=== PATIENT | male | born 1950 | race Caucasian/White ===

== ENCOUNTER 2020-06-05 17:02 | Inpatient (IN) | payer MEDICARE, OTHER ==
[~2020-06-05] VITALS: Ht 177.8 cm; Wt 84.1 kg
[~2020-06-05 17:02] MED LIST: ASPI325 PO; ASPI81CH PO; ATEN25 PO; ATOR40TA PO; CLOP75 PO; CYCL10 PO; HYDR1TAB94 PO; LISI20 PO; LORA1 PO; LOSA25 PO; METO25ER PO; NITR.6SL SL; NITRSPRAY SL; PRAZ1 PO; SIMV80 PO
[2020-06-05 17:26] LABS: BASOPHILS ABSOLUTE AUTO 0.09 K/mm3 (0.00-0.23); BASOPHILS PERCENT AUTO 1 % (0-2); EOSINOPHILS ABSOLUTE AUTO 0.25 K/mm3 (0.00-0.68); EOSINOPHILS PERCENT AUTO 2 % (0-6); Hematocrit 48.3 % (37.0-53.0); Hemoglobin 14.9 g/dL (13.5-17.5); IMMATURE GRAN PERCENT AUTO 1 % (0-1); LYMPHOCYTES ABSOLUTE AUTO 6.65 K/mm3 (0.84-5.20); LYMPHOCYTES PERCENT AUTO 43 % (21-46); MONOCYTES ABSOLUTE AUTO 1.09 K/mm3 (0.16-1.47); MONOCYTES PERCENT AUTO 7 % (4-13); Mean Corpuscular HGB 30.8 pg (26.0-34.0); Mean Corpuscular HGB Conc 30.8 g/dL (31.5-36.5); Mean Corpuscular Volume 100 fL (80-100); Mean Platelet Volume 10.1 fL (9.1-12.4); NEUTROPHILS ABSOLUTE AUTO 7.17 K/mm3 (1.96-9.15); NEUTROPHILS PERCENT AUTO 46 % (41-73); Platelet Count 244 K/mm3 (150-400); RDW Standard Deviation 48.2 fL (35.1-46.3); Red Blood Cell Count 4.83 M/mm3 (4.30-5.90); White Blood Cell Count 15.45 K/mm3 (4.00-11.30)
[2020-06-05] MEDS ORDERED: METO25ER PO (17:32)
[2020-06-05] MEDS ORDERED: Simvastatin80 MG PO (17:37)
[2020-06-05 17:43] LABS: Ethanol (Alcohol), Blood, Med 19 mg/dL
[2020-06-05 17:44] LABS: International Normalized Ratio 1.03
[2020-06-05 17:49] LABS: Alanine Aminotransfer (ALT/SGP 26 U/L (12-78); Albumin, Blood 3.5 g/dL (3.4-5.0); Alk Phos 58 U/L (50-136); Anion Gap 26 mmol/L (6-16); Aspartate Aminotrans (AST/SGOT 36 U/L (12-37); Bilirubin, Total 0.4 mg/dL (0.1-1.0); Blood Urea Nitrogen 19 mg/dL (8-24); Bun/Creatinine Ratio 15.2 (12.0-20.0); CO2, Blood 8 mmol/L (21-32); Calcium, Blood 9.4 mg/dL (8.5-10.1); Chloride, Blood 105 mmol/L (98-108); Creatinine, Blood 1.25 mg/dL (0.60-1.20); Globulin, Blood 3.6 g/dL (2.2-4.0); Glomerular Filtration Rate >60 (60-); Glucose, Blood 176 mg/dL (70-99); Potassium, Blood 4.6 mmol/L (3.5-5.5); Sodium, Blood 139 mmol/L (136-145); Total Protein, Blood 7.1 g/dL (6.4-8.2)
[2020-06-05 19:43] LABS: U Amphetamine Screen DETECTED; U Barbituate Screen Not Detected; U Benzodiazapine Screen Not Detected; U Buprenorphine Screen Not Detected; U Cannabinoids Screen Not Detected; U Cocaine Screen Not Detected; U Methadone Screen Not Detected; U Methamphetamine Screen Not Detected; U Opiates Screen Not Detected; U Oxycodone Screen Not Detected; U Phencyclidine Screen Not Detected; U Propoxyphene Screen Not Detected
--- NOTE | 2020-06-05 20:10 | NUR ---
ADMIT RECEIVED FROM ER VIA GURNEY. INTUBATED- AC 14, TV 450, PEEP 5, FIO2 50%. ETT 8.0, 25CM AT LIP. SEDATED WITH PROPOFOL @ 40MCG/KG/MIN. PT MOVING ALL EXTREMITIES. BILATERAL SOFT WRIST RESTRAINTS IN PLACE TO PREVENT SELF-EXTUBATION. NOT FOLLOWING ANY COMMANDS. MULTIPLE LACERATIONS NOTED TO FACE, HEAD, SCALP, ABDOMEN, LEFT FOREARM, AND RIGHT HAND. RIGHT SCALP LACERATION CONTINUES TO BLEED. MONITOR SHOWS NSR, RATE 90s. BP STABLE. NG TO RIGHT NARES- CLAMPED. GOMEZ PATENT AND DRAINING SLIGHTLY HAZY YELLOW URINE. SEE ADMIT ASSESSMENT FOR FULL ASSESSMENT.
--- NOTE | 2020-06-05 20:15 | NUR ---
AGITATION PT SITTING UP IN BED AND THROWING SELF OVER TO THE SIDE OF THE BED. DOES NOT CALM TO COMMAND/INSTRUCTION. PROPOFOL INCREASED TO 80MCG/KG/MIN AT THIS TIME.
[2020-06-05] MEDS ORDERED: BUPROPION XL150 M1 PO (22:01)
[2020-06-05] MEDS ORDERED: LOSA50 PO (22:02)
[2020-06-05] MEDS ORDERED: ESCI5 PO (22:02)
[2020-06-05] MEDS ORDERED: QUET100 PO (22:03)
[2020-06-05] MEDS ORDERED: METF500 PO (22:03)
[2020-06-05] MEDS ORDERED: Ventolin/Prove6.7 GM INH (22:04)
[2020-06-05] MEDS ORDERED: TIOT18 INH (22:05)
--- NOTE | 2020-06-05 23:30 | NUR ---
SEDATION PRECEDEX STARTED AT THIS TIME AT 0.2MCG/KG/HR. PROPOFOL DECREASED T0 50MCG/KG/MIN.
[2020-06-05 23:46] LABS: PCO2 Arterial 53.3 mmHg (35-45); PO2 Arterial 124 mmHg (80-100); pH Blood Arterial 7.28 (7.35-7.45)
[2020-06-06 01:00] LABS: BASOPHILS ABSOLUTE AUTO 0.04 K/mm3 (0.00-0.23); BASOPHILS PERCENT AUTO 0 % (0-2); EOSINOPHILS ABSOLUTE AUTO 0.06 K/mm3 (0.00-0.68); EOSINOPHILS PERCENT AUTO 1 % (0-6); Hematocrit 42.5 % (37.0-53.0); Hemoglobin 13.5 g/dL (13.5-17.5); IMMATURE GRAN ABSOLUTE AUTO 0.04 K/mm3 (0.00-0.10); IMMATURE GRAN PERCENT AUTO 0 % (0-1); LYMPHOCYTES ABSOLUTE AUTO 1.72 K/mm3 (0.84-5.20); LYMPHOCYTES PERCENT AUTO 17 % (21-46); MONOCYTES ABSOLUTE AUTO 1.14 K/mm3 (0.16-1.47); MONOCYTES PERCENT AUTO 11 % (4-13); Mean Corpuscular HGB 30.6 pg (26.0-34.0); Mean Corpuscular HGB Conc 31.8 g/dL (31.5-36.5); Mean Corpuscular Volume 96 fL (80-100); Mean Platelet Volume 9.7 fL (9.1-12.4); NEUTROPHILS ABSOLUTE AUTO 7.28 K/mm3 (1.96-9.15); NEUTROPHILS PERCENT AUTO 71 % (41-73); Platelet Count 186 K/mm3 (150-400); RDW Coefficient Variation 13.2 % (11.7-14.2); RDW Standard Deviation 47.6 fL (35.1-46.3); Red Blood Cell Count 4.41 M/mm3 (4.30-5.90); White Blood Cell Count 10.28 K/mm3 (4.00-11.30)
[2020-06-06 01:19] LABS: Anion Gap 4 mmol/L (6-16); Blood Urea Nitrogen 19 mg/dL (8-24); Bun/Creatinine Ratio 16.5 (12.0-20.0); CO2, Blood 28 mmol/L (21-32); Chloride, Blood 109 mmol/L (98-108); Creatinine, Blood 1.15 mg/dL (0.60-1.20); Glomerular Filtration Rate >60 (60-); Glucose, Blood 197 mg/dL (70-99); Potassium, Blood 4.3 mmol/L (3.5-5.5); Sodium, Blood 141 mmol/L (136-145)
[2020-06-06 01:20] LABS: CPK Creatine Kinase 1016 U/L (39-308)
--- NOTE | 2020-06-06 04:30 | NUR ---
NG PLACEMENT ATTEMPTED TO CONFIRM NG PLACEMENT, BUT NG NOTED TO BE CURLED UP INSIDE RIGHT NARES. NG TUBE PULLED OUT AT THIS TIME AND OG PLACED WITHOUT DIFFICULTY. PLACEMENT CONFIRMED BY BOTH AUSCULTATION AND ASPIRATION OF GASTRIC CONTENTS.
--- NOTE | 2020-06-06 05:59 | NUR ---
SHIFT SUMMARY NO ACUTE CHANGES. REMAINS INTUBATED- AC 16, TV 450, PEEP 5, FIO2 35%. SEDATED WITH PROPOFOL BETWEEN 25-80MCG/KG/MIN DURING NOC- NOW INFUSING @ 25MCG/KG/MIN. PRECEDEX INFUSING AT 0.2MCG/KG/HR. PT MOVES ALL EXTREMITIES IN RESPONSE TO NOXIOUS STIMULI. UNABLE TO OPEN EYES D/T SWELLING. BILATERAL SOFT WRIST RESTRAINTS IN PLACE. SLIGHT GAG REFLEX NOTED WITH ORAL CARE. VSS T/O NOC. AFEBRILE. OG IN PLACE. GOMEZ PATENT AND DRAINING YELLOW URINE. MULTIPLE LACERATIONS NOTED- PICTURES IN CHART. NS + 20mEq KCL INFUSING AT 100CC/HR PER ORDER. BANANA BAG GIVEN PER ORDER. MEDICATED WITH MS 10MG IV X 1 DOSE DURING SHIFT. SCDs TO BLE. WILL REPORT TO ONCOMING RN WHEN AVAILABLE.
--- NOTE | 2020-06-06 09:40 | NUR ---
AM NOTE... ASSUMED CARE OF PT APROX 0700, PT IS INTUBATED AND SEDATED, CURRENT VENT SETTINGS ARE AC: 16,450,5 AND30% TURNED DOWN FROM 35% AT THE START OF THIS SHIFT. PT STARTED THIS SHIFT ON PROPOFOL AT 25 AND PRECEDEX AT 0.2. DURING ASSESSMENT THE PT CAME FORWARD OFF OF THE BED TRYING TO SELF EXTUBATE, KICKING HIS LEGS AND KNEES UP ATTEMPTING TO GET UP. PROPOFOL WAS INCREASED TO 40MCG/KG/MIN THEN 60MCG/KG/MIN AND PRECEDEX WAS INCREASED TO 0.4 MCG/KG/MIN, PT WAS ALSO GIVEN 50MCG OF FENTANYL AT THIS TIME. ONCE THE PT WAS COMFORTABLE AND CALM AGAIN THE PROPOFOL WAS TITRATED BACK DOWN TO 30MCG/KG/MIN. L/S INSP WHEEZES HEARD IN THE UPPER LOBES. BT PRESENT AND HYPOACTIVE ABD HAS MINIMAL DISTENTION AND IS SOFT TO PALP. NO EDEMA NOTED ON ASSESSMENT. PT HAS MULTIPLE LACERATIONS TO HIS HEAD/FACE AND ABD, PICTURES IN THE CHART. DR. EASTMAN AT THE BEDSIDE OF ASSESSMENT, PER IT IS OKAY TO INCREASE THE PRECEDEX TO 1.4MCG/KG/HR IF NEEDED TO DECREASE PROPOFOL USE. WILL CONTINUE TO MONITOR.
--- NOTE | 2020-06-06 12:25 | NUR ---
PT UPDATE... PT'S BP IS CURRENTLY MAINTAINING 70'S/50'S WITH MAPS HIGH 50'S-LOW 60'S, DR. EASTMAN NOTIFIED, 1000MLS BOLUS OF NS WAS ORDERED AND STARTED. TRICKLE TUBE FEED AT 15MLS/HR WAS STARTED WELL. WILL CONTINUE TO MONITOR.
[2020-06-06 14:41] LABS: Hematocrit 35.5 % (37.0-53.0); Hemoglobin 11.4 g/dL (13.5-17.5)
--- NOTE | 2020-06-06 17:25 | NUR ---
SHIFT SUMMARY... PT REMAINS INTUBATED AND SEDATED, A CENTRAL LINE WAS PLACED IN THE PT'S LEFT GROIN BY DR. EASTMAN AND LEVOPHED WAS STARTED DUE TO THE PT'S MAP BEING BELOW 60. THE PT'S SEDATION WAS CHANGED FROM PRECEDEX GTT TO A VERSED GTT, THE PROPOFOL IS RUNNING AT 30, PT RESPONDS TO NOXIOUS STIMULI AND REPOSITIONING. PT AT TIMES WILL KICK UP HIS KNEES TOWARDS STAFF AND ATTEMPT TO KICK THEM WITH HIS FEET WHEN STAFF IS PROVIDING CARE. PT'S VENT SETTINGS REMAIN THE SAME AC: 16,450,5 AND 30% WITH O2 SATS >90%. PT'S TMAX FOR THE DAY WAS 99.3. GOMEZ IS PATENT AND DRAINING CLEAR YELLOW URINE TO GRAVITY. THE DRESSINGS WERE CHANGED TO THE PT'S HEAD AND RIGHT EYE, THERE IS AN AREA TO THE PT'S EYE LID THAT APPEARES TO HAVE BEEN SPLIT/CUT AND THERE IS SMALL AMOUNT OF POSSIBLE FATTY ORBITAL TISSUE EXPOSED IN THAT AREA, DR. EASTMAN MADE AWARE AND HE ASSESSED THE AREA, NO NEW ORDERS GIVEN AT THIS TIME. TRICKLE TUBE FEED STARTED PER ORDERS AT 15MLS/HR PT SEEMS TO BE TOLERATING THIS WELL. WILL CONTINUE TO MONITOR UNTIL REPORT IS GIVEN TO ONCOMING RN.
--- NOTE | 2020-06-06 19:00 | NUR ---
ASSUMED CARE ASSUMED CARE OF PATIENT. REMAINS INTUBATED- AC 16, TV 450, PEEP 5, FIO2 30%. SEDATED WITH PROPOFOL @ 30MCG/KG/MIN AND VERSED AT 2MG/HR. OCCASIONAL PERIODS OF AGITATION WITH STIMULI, OTHERWISE PT IS CALM. MOVES ALL EXTREMITIES. NOT FOLLOWING ANY COMMANDS. BILATERAL SOFT WRIST RESTRAINTS IN PLACE TO PREVENT SELF-EXTUBATION. MONITOR SHOWS SB-SR, RATE 58-60s. SBP 90s, MAP >65. AFEBRILE. OG WITH PIVOT 1.5 INFUSING @ 15CC/HR PER ORDER. GOMEZ PATENT AND DRAINING YELLOW URINE. SCDs TO BLE. SCATTERED LACERATIONS NOTED. SEE SHIFT ASSESSMENT FOR FULL ASSESSMENT.
[2020-06-07 04:28] LABS: BASOPHILS ABSOLUTE AUTO 0.03 K/mm3 (0.00-0.23); BASOPHILS PERCENT AUTO 0 % (0-2); EOSINOPHILS ABSOLUTE AUTO 0.13 K/mm3 (0.00-0.68); EOSINOPHILS PERCENT AUTO 2 % (0-6); Hematocrit 34.7 % (37.0-53.0); IMMATURE GRAN ABSOLUTE AUTO 0.02 K/mm3 (0.00-0.10); IMMATURE GRAN PERCENT AUTO 0 % (0-1); LYMPHOCYTES ABSOLUTE AUTO 2.07 K/mm3 (0.84-5.20); LYMPHOCYTES PERCENT AUTO 24 % (21-46); MONOCYTES ABSOLUTE AUTO 0.99 K/mm3 (0.16-1.47); MONOCYTES PERCENT AUTO 12 % (4-13); Mean Corpuscular HGB 31.3 pg (26.0-34.0); Mean Corpuscular HGB Conc 31.7 g/dL (31.5-36.5); Mean Corpuscular Volume 99 fL (80-100); Mean Platelet Volume 9.9 fL (9.1-12.4); NEUTROPHILS ABSOLUTE AUTO 5.34 K/mm3 (1.96-9.15); NEUTROPHILS PERCENT AUTO 62 % (41-73); Platelet Count 140 K/mm3 (150-400); RDW Coefficient Variation 13.9 % (11.7-14.2); RDW Standard Deviation 49.7 fL (35.1-46.3); Red Blood Cell Count 3.52 M/mm3 (4.30-5.90); White Blood Cell Count 8.58 K/mm3 (4.00-11.30)
--- NOTE | 2020-06-07 04:42 | NUR ---
SEDATION/SBT SEDATION TITRATED DOWN AFTER AM CHEST XRAY DONE. PT WAS MILDLY AGITATED WITH REPOSITIONING FOR XRAY.
[2020-06-07 04:52] LABS: Albumin, Blood 3.3 g/dL (3.4-5.0); Anion Gap 3 mmol/L (6-16); Blood Urea Nitrogen 14 mg/dL (8-24); Bun/Creatinine Ratio 14.3 (12.0-20.0); CO2, Blood 24 mmol/L (21-32); Calcium, Blood 8.1 mg/dL (8.5-10.1); Chloride, Blood 119 mmol/L (98-108); Creatinine, Blood 0.98 mg/dL (0.60-1.20); Glomerular Filtration Rate >60 (60-); Glucose, Blood 122 mg/dL (70-99); Magnesium, Blood 2.7 mg/dL (1.6-2.4); Phosphorus, Blood 2.5 mg/dL (2.5-4.9); Potassium, Blood 4.2 mmol/L (3.5-5.5); Sodium, Blood 146 mmol/L (136-145)
--- NOTE | 2020-06-07 05:46 | NUR ---
SEDATION/SBT PT WEANED WITH PROPOFOL @ 10MCG/MIN AND VERSED GTT AT 1MG/HR. PASSIVE WEAN DONE IN ATTEMPT TO NOT AGITATE PATIENT DURING WEAN. PT MOVING ALL EXTREMITIES. NOT FOLLOWING ANY COMMANDS. BECOMES INCREASINGLY AGITATED SO PROPOFOL INCREASED TO 20MCG/KG/MIN AT THIS TIME. SEE RT DOCUMENTATION.
--- NOTE | 2020-06-07 06:37 | NUR ---
SHIFT SUMMARY NO ACUTE CHANGES DURING NOC. REMAINS INTUBATED- AC 16, TV 450, PEEP 5, FIO2 30%. SEDATED WITH PROPOFOL BETWEEN 10-20MCG/KG/MIN- NOW INFUSING AT 20MCG/KG/MIN. SEDATED ALSO WITH VERSED GTT BETWEEN 1-2MG/HR- NOW INFUSING AT 1MG/HR. MOVES ALL EXTREMITIES. NOT FOLLOWING COMMANDS. OCCASIONAL PERIODS OF AGITATION WHERE PT KICKS LEGS AND ATTEMPTS TO SIT UP. MEDICATED WITH FENTANYL 50MCG IV X 2 DOSES FOR PAIN AND AN ADJUNCT TO SEDATION. VSS. BECOMES SLIGHTLY HYPERTENSIVE WITH AGITATION. OG WITH PIVOT 1.5 AT 15CC/HR PER ORDER. RESIDUALS <10CC. GOMEZ PATENT AND DRAINING. TMAX 99.8F. MULTIPLE CALLS RECEIVED FROM VARIOUS FAMILY MEMBERS DURING NOC. WILL REPORT TO ONCOMING RN WHEN AVAILABLE.
--- NOTE | 2020-06-07 09:43 | NUR ---
AM NOTE... ASSUMED CARE OF PT APROX 0700, PT IS INTUBATED AND SEDATED VENT SETTINGS AC: 16/450/5/30% WITH O2 SATS >92%. L/S COARSE IN THE UPPER LOBES CLEAR/DIM IN THE LOWER LOBES. BT PRESENT AND HYPOACTIVE, ABD IS SOFT AND TENDER TO PALP D/T LACERATIONS. PT HAS NOT HAD A BM SINCE ADMIT. PT HAS NONPITTING EDEMA TO HIS FACE AND EYES, LACERATION TO THE RIGHT EYE IS MORE SWOLLEN WITH PURRULENT DRAINAGE, DR. EASTMAN MADE AWARE NO NEW ORDERS AT THIS TIME. OTHER LACTERATIONS ON HIS ABD AND HEAD HAVE NOT CHANGED. PT IS CURRENTLY ON VERSED GTT AT 2MG/HR AND PROPOFOL AT 30MCG/KG/MIN PT IS SEDATED BUT RESPONDS TO NOXIOUS/PAINFUL STIMULI, PT IS ABLE TO BOYER WELL BUT DOES NOT FOLLOW COMMANDS. INCREASED CROSS SECRETIONS SUCTIONED FROM THE ET TUBE ARE NOTED A CHANGE FROM YESTERDAY. GOMEZ IS PATENT AND DRAINING DARK YELLOW URINE WITH SEDIMENT NOTED IN THE TUBE AND BAG. DR. EASTMAN AT THE BEDSIDE THIS AM CONSTULING DR. COLLINS OPTHOMOLOGIST FOR THE PT'S RIGHT EYE. CALL LIGHT IN REACH WILL CONTINUE TO MONITOR.
--- NOTE | 2020-06-07 18:12 | NUR ---
SHIFT SUMMARY... PT REMAINS INTUBATED AT THIS TIME, VENT SETTINGS ARE THE SAME. DR. COLLINS OPTHOMOLOGIST SAW THE PT THIS SHIFT, HE REPAIRED THE PT'S RIGHT EYE LID, WITH VICRYL SUTURES. SUTURES ARE NOT TO BE REMOVED PER DR. COLLINS. OITMENT IS TO BE PLACED ON THE SUTURES TID. DURING ORAL CARE AT 1600 BRIGHT RED BLOOD WAS BEING SUCTIONED OUT OF THE PT'S MOUTH, ON ASSESSMENT THE PT HAS A LARGE HEMATOMA ON HIS INNER CHEEK TOWARDS THE BACK OF HIS THROAT, CHARGE NURSE WAS NOTIFIED. PT'S WOUNDS REMAIN THE SAME. GOMEZ IS PATENT AND DRAINING DARK YELLOW URINE WITH SEDIMENT TO GRAVITY. NO BM THIS SHIFT. WILL CONTINUE TO MONITOR UNTIL REPORT IS GIVEN TO ONCOMING RN.
--- NOTE | 2020-06-07 21:33 | NUR ---
CALL PLACED TO DOCTOR EASTMAN SPOKE TO DOCTOR EASTMAN REGARDING PUPILS BEING UNEQUAL AND SLUGGISH. DUE TO PATIENT HAVING EYE EXAM WITH DILATING MEDICATIONS AND TRAMA TO RIGHT EYE, WILL CHECK NEURO FURTHER WITH NO SEDATION. BOTH PROPOFOL AND VERSED WERE TURNED OFF, AFTER APROX 1/2 HR PATIENT ABLE TO MOVE ALL 4 EXTREM, AND GOOD COUGH, GRIMACING, AND LIFTING HIS HEAD. NOT FOLLOWING DIRECTIONS. SEDATION RESTARTED AND FENTANYL GIVEN TO HELP PATIENT RELAX, BILAT WRIST RESTRAINTS REMAIN IN PLACE DUE TO UNPREDICTABLE SEDATION AND BEHAVIOR.
--- NOTE | 2020-06-07 22:02 | NUR ---
ASSUMED CARE ASSUMED CARE OF PT @1900 FROM JACINTO RAMIREZ. PT INTUBATED-AC 16, 450, 5, 30%. VERSED GTT @ 2MG/HR, PROPOFOL @ 30MCG/KG/MIN. DOES NOT RESPOND TO VERBAL STIMULI. PUPILS UNEQUAL, R PUPIL 2, L PUPIL 5, BOTH SLUGGISH TO RESPOND. COUGH AND GAG PRESENT DURING SUCTION. LS COARSE. BL SOFT WRIST RESTRAINTS IN PLACE TO PROTECT LINES AND ETT TUBE. MONITOR SHOWS NSR-60'S-70'S. AFEBRILE PER TEMP GOMEZ. OG TUBE c PIVOT @ GOAL OF 1.5. GOMEZ DRAINING DARK URINE. SCD'S BLE. LACERATIONS TO ABDOMEN, HEAD, AND EYE, SEE SHIFT ASSESSMENT. CALL PLACED TO DR. EASTMAN REGARDING PUPILS AND ORAL HEMATOMA, SEE PREVIOUS NOTE
[2020-06-08 04:24] LABS: BASOPHILS ABSOLUTE AUTO 0.03 K/mm3 (0.00-0.23); BASOPHILS PERCENT AUTO 0 % (0-2); EOSINOPHILS ABSOLUTE AUTO 0.13 K/mm3 (0.00-0.68); EOSINOPHILS PERCENT AUTO 2 % (0-6); Hematocrit 33.3 % (37.0-53.0); Hemoglobin 10.6 g/dL (13.5-17.5); IMMATURE GRAN ABSOLUTE AUTO 0.02 K/mm3 (0.00-0.10); IMMATURE GRAN PERCENT AUTO 0 % (0-1); LYMPHOCYTES ABSOLUTE AUTO 1.61 K/mm3 (0.84-5.20); LYMPHOCYTES PERCENT AUTO 23 % (21-46); MONOCYTES ABSOLUTE AUTO 0.71 K/mm3 (0.16-1.47); MONOCYTES PERCENT AUTO 10 % (4-13); Mean Corpuscular HGB 31.5 pg (26.0-34.0); Mean Corpuscular HGB Conc 31.8 g/dL (31.5-36.5); Mean Corpuscular Volume 99 fL (80-100); Mean Platelet Volume 10.2 fL (9.1-12.4); NEUTROPHILS ABSOLUTE AUTO 4.66 K/mm3 (1.96-9.15); NEUTROPHILS PERCENT AUTO 65 % (41-73); Platelet Count 148 K/mm3 (150-400); RDW Coefficient Variation 13.7 % (11.7-14.2); RDW Standard Deviation 49.9 fL (35.1-46.3); Red Blood Cell Count 3.37 M/mm3 (4.30-5.90); White Blood Cell Count 7.16 K/mm3 (4.00-11.30)
[2020-06-08 04:46] LABS: Albumin, Blood 2.6 g/dL (3.4-5.0); Anion Gap 4 mmol/L (6-16); Blood Urea Nitrogen 10 mg/dL (8-24); Bun/Creatinine Ratio 11.2 (12.0-20.0); CO2, Blood 24 mmol/L (21-32); Calcium, Blood 8.1 mg/dL (8.5-10.1); Chloride, Blood 119 mmol/L (98-108); Glomerular Filtration Rate >60 (60-); Glucose, Blood 126 mg/dL (70-99); Phosphorus, Blood 2.4 mg/dL (2.5-4.9); Sodium, Blood 147 mmol/L (136-145)
--- NOTE | 2020-06-08 05:56 | NUR ---
SHIFT SUMMARY NO ACUTE CHANGES. REMAINS INTUBATED, VENT SETTINGS: RR16, TV450, FIO2 30%, PEEP 5. PROPOFOL GTT @ 30MCG/KG/MIN, VERSED @ 2MG/HR. DOES NOT RESPOND TO STIMULI. PUPILS 2MM, EQUAL, SLUGGISH. COUGH AND GAG PRESENT DURING SUCTION. LS COARSE. BL SOFT WRIST RESTRAINTS IN PLACE TO PROTECT LINES, CORDS, TUBES. 1 DOSE OF 50MG FENTANYL GIVEN. WILL CONTINUE TO MONITOR. REPORT TO BE GIVEN TO ONCOMING NURSE.
--- NOTE | 2020-06-08 09:07 | NUR ---
AM NOTE... ASSUMED CARE OF PT APROX 0700, PT IS INTUBATED AND SEDATED, VENT SETTINGS AC: 16/450/5/30%. O2 SATS >90%. L/S COARSE WITH INSP WHEEZES ON THE RIGHT. PT IS IN NSR IN THE 70'S-80'S, BP'S ARE CURRENTLY STABLE. PT HAS 1+ EDEMA TO HIS BLE, HIS HANDS AND NONPITTING TO HIS FACE/EYES. BT PRESENT BUT HYPOACTIVE ABD IS SOFT TO PALP AT THIS TIME. NO CHANGES TO THE PT'S ABD LACERATIONS. PT'S RIGHT EYE SUTURES ARE INTACT. PT'S CURRENT SEDATION SETTINGS ARE VERSED GTT AT 2MG/HR AND PROPOFOL AT 30MCG/KG/MIN. GOMEZ PATENT AND DRAINING YELLOW URINE WITH SEDIMENT TO GRAVITY. TUBE FEED RUNNING PER ORDERS AT 15MLS/HR NO RESIDUALS ON ASSESSMENT. WILL CONTINUE TO MONITOR.
--- NOTE | 2020-06-08 14:03 | NUR ---
PT UPDATE... PT'S TUBE FEEDS HAVE BEEN INCREASED FROM TRICKLE AT 15MLS/HR TO A GOAL OF 40MLS/HR. PT'S LAST Q6 CBG WAS 240, DR. GAY NOTIFIED AND NEW ORDERS FOR REGULAR INSULIN ALONDRA S/S WERE OBTAINED. PT IS CURRENTLY ON 15MCG/KG/MIN OF PROPOFOL AND 1MG/HR VERSED. WILL CONTINUE TO MONITOR
--- NOTE | 2020-06-08 17:57 | NUR ---
SHIFT SUMMARY... NO ACUTE NEGATIVE CHANGES NOTED THIS SHIFT. PT IS STILL INTUBATED VENT SETTINGS HAVE NOT CHANGED. PROPOFOL IS UP TO 30MCG/KG/MIN, VERSED DRIP WAS D/C'D. PT'S VS STABLE T/O SHIFT. GOMEZ IS PATENT AND DRAINING YELLOW URINE WITH SEDIMENT TO GRAVITY. PT HAS NOT HAD BM SINCE ADMIT. TUBE FEEDS WERE INCREASED TO 40ML/HR FOR GOAL RATE, PT IS CURRENTLY AT HIS GOAL RATE. NO CHANGE TO THE PT'S WOUNDS. WILL CONTINUE TO MONITOR UNTIL REPORT IS GIVEN TO ONCOMING RN.
--- NOTE | 2020-06-08 19:45 | NUR ---
AM NOTE ASSUMED CARE OF PT AT APPROX 1900. PT IS INTUBATED, VENT SETTINGS: 16/450/5/30%. O2 SATS >90%. PT RESPONDS TO PAINFUL STIMULI. LS COARSE. COUGH AND GAG PRESENT DURING SUCTION. NSR IN 70'S-80'S. BP STABLE. BLE PITTING EDEMA 1+. TRAUMATIC EDEMA TO THE R EYE/FACE, NON-PITTING, SUTURES INTACT. PROPOFOL GTT @ 25MCG/KG/MIN. BLE SOFT WRIST RESTRAINTS IN PLACE TO PROTECT LINES, CORDS, AND TUBES. OG TUBE c PIVOT @ GOAL OF 40ML. BT PRESENT IN ALL 4 BUT HYPOACTIVE. GOMEZ CATH DRAINING DARK URINE. LACERATIONS TO ABDOMEN, HEAD, AND EYE, SEE SHIFT ASSESSMENT.
[2020-06-09 03:11] LABS: BASOPHILS ABSOLUTE AUTO 0.04 K/mm3 (0.00-0.23); BASOPHILS PERCENT AUTO 1 % (0-2); EOSINOPHILS ABSOLUTE AUTO 0.13 K/mm3 (0.00-0.68); EOSINOPHILS PERCENT AUTO 2 % (0-6); Hematocrit 33.9 % (37.0-53.0); Hemoglobin 10.6 g/dL (13.5-17.5); IMMATURE GRAN ABSOLUTE AUTO 0.01 K/mm3 (0.00-0.10); IMMATURE GRAN PERCENT AUTO 0 % (0-1); LYMPHOCYTES ABSOLUTE AUTO 1.83 K/mm3 (0.84-5.20); LYMPHOCYTES PERCENT AUTO 26 % (21-46); MONOCYTES ABSOLUTE AUTO 0.79 K/mm3 (0.16-1.47); MONOCYTES PERCENT AUTO 11 % (4-13); Mean Corpuscular HGB 30.8 pg (26.0-34.0); Mean Corpuscular HGB Conc 31.3 g/dL (31.5-36.5); Mean Corpuscular Volume 99 fL (80-100); Mean Platelet Volume 10.4 fL (9.1-12.4); NEUTROPHILS ABSOLUTE AUTO 4.13 K/mm3 (1.96-9.15); NEUTROPHILS PERCENT AUTO 60 % (41-73); Platelet Count 177 K/mm3 (150-400); RDW Coefficient Variation 13.9 % (11.7-14.2); RDW Standard Deviation 50.4 fL (35.1-46.3); Red Blood Cell Count 3.44 M/mm3 (4.30-5.90); White Blood Cell Count 6.93 K/mm3 (4.00-11.30)
[2020-06-09 03:27] LABS: Albumin, Blood 2.4 g/dL (3.4-5.0); Anion Gap 3 mmol/L (6-16); Blood Urea Nitrogen 10 mg/dL (8-24); CO2, Blood 26 mmol/L (21-32); Chloride, Blood 119 mmol/L (98-108); Creatinine, Blood 0.91 mg/dL (0.60-1.20); Glomerular Filtration Rate >60 (60-); Glucose, Blood 118 mg/dL (70-99); Magnesium, Blood 2.1 mg/dL (1.6-2.4); Phosphorus, Blood 2.7 mg/dL (2.5-4.9); Potassium, Blood 3.7 mmol/L (3.5-5.5); Sodium, Blood 148 mmol/L (136-145)
[2020-06-09 05:36] LABS: PCO2 Arterial 41.9 mmHg (35-45); pH Blood Arterial 7.39 (7.35-7.45)
--- NOTE | 2020-06-09 05:46 | NUR ---
SHIFT SUMMARY PT RESPONDS TO PAINFUL STIMULI. REMAINS INTUBATED, VENT SETTINGS: 16, 450, 5, 30%. O2 SATS REMAINED >90%, LS COARSE. PROPOFOL GTT TITRATED UP TO 35MCG/KG/MIN. TUBE FEEDINGS REMAIN @ GOAL OF 40ML c MINIMAL RESIDUALS. BLE WRIST RESTRAINTS REMAIN IN PLACE TO PROTECT LINES, CORDS, AND TUBES. GOMEZ CATH DRAINING YELLOW URINE. NO BM. DURING WEAN PT MOVING ALL EXTREMITIES BUT NOT FOLLOWING COMMANDS. ATIVAN AND FENTANYL ADMINISTERED THROUGHOUT THE NIGHT PRN AGITATION.
--- NOTE | 2020-06-09 08:07 | NUR ---
ASSUMED CARE RECIEVED REPORT FROM DOM RN. PT IS INTUBATED WITH 8.0 ETT 25 @ LIP. VENT SETTINGS: AC 16/450/5/30%. CURRENTLY ADEQUATELY SEDATED ON PROPOFOL AT 40 MCG/KG/MIN. LR IS INFUSING AT 50 ML/HR. HE HAS A PATENT GOMEZ DRAINING YELLOW URINE. SCD'S ARE IN PLACE ON BILATERAL CALVES. SWB RESTRAINTS SECURED TO PT AND BED. STABLE VITAL SIGNS, SINUS RHYTHM. LOW GRADE FEVER: 99.3. BED LOW AND LOCKED. PT ON LEFT SIDE. HOB AT LEAST 30 DEGREES.
--- NOTE | 2020-06-09 10:13 | NUR ---
UPDATE PER DR. GAY REQUEST I TURNED THE PROPOFOL ON STANDBY AT 0948. HE IS STARTING TO WAKE UP MORE, HE IS OCCASIONALLY GAGING/COUGHING - BUT HE STILL REMAINS SEDATED AND IS NOT FOLLOWING COMMANDS. BED LOW AND LOCKED. RESTRAINTS SECURED TO PT AND BED.
--- NOTE | 2020-06-09 11:20 | NUR ---
UPDATE PT OFF SEDATION SINCE 947. AND WAS PUT ON PRESSURE SUPPORT/SPONTANEOUS SETTINGS AROUND 1045. WITH NO NOXIOUS (OR LOUD VERBAL) STIMULI PT IS RESTING, BUT WITH THAT STIMULATION PT WILL WAKE UP, PULL ON RESTRAINTS, GAG/COUGH A FEW TIMES, BUT WILL NOT FOLLOW COMMANDS OF YET. AFTER THE STIUMLATION STOPS, A FEW MINUTES LATER THE PT WILL STOP AND START RESTING AGAIN - NO COUGHING/GAGING AT REST CURRENTLY. VITALS STABLE.
--- NOTE | 2020-06-09 16:27 | NUR ---
UPDATE PT BACK ON AC16/450/5/30% AFTER BEING ON SPONTANEOUS PS 10/ SINCE AROUND NOON. HE WAS DOING GREAT FROM A RESPIRATORY STANDPOINT, ALTHOUGH HE WAS HAVING MODERATE AMOUNT OF THICK, CROSS SECRETIONS FROM HIS TRACHEA. HE IS ALSO HAVING DARK AGGARWAL/CROSS, BLOOD TINGE SECRETIONS IN HIS MOUTH. BUT THE MAIN ISSUE IS HIS AGITATION LEVEL WAS BECOMING TOO MUCH, HE WAS CONSTANTLY PULLING ON RESTRAINTS, GETTING FAIRLY CLOSE TO HIS ETT. HE FOUGHT SO HARD HIS ETT TUBE BECAME DISCONNECTED FROM THE VENT A FEW TIMES. HE WAS NOT MAKING EYE CONTACT, AND WASN'T CONSISTENT ABOUT FOLLOWING COMMANDS. PROPOFOL IS NOW AT 15 MCG/KG/MIN. 2MG OF ATIVAN WAS ALSO GIVEN A PUSH. PT CURRENTLY IS MORE CALM, RESTING. LAST BP WAS ELEVATED, BUT VS ARE OVERAL WNL NOW. MINUTE VENTILATION ~10 L/MIN.
--- NOTE | 2020-06-09 19:20 | NUR ---
SHIFT SUMMARY PT CURRENTLY ON AC 16/450/5/30% AFTER BEING ON SPONTANEOUS PS 10/5 FOR HALF THE DAY. CURRENTLY BACK ON SEDATION, PROPOFOL AT 25 MCG/KG/MIN. LR ON AT 50 ML/HR. OG TUBE IN FOR TF: PIVOT 1.5 WHICH IS AT GOAL 40 ML/HR, WITH 30 ML Q4H FLUSHES. RESIDUALS WERE MINIMAL TODAY 5-10 ML. CONTINUES TO BE IN SWB RESTRAINTS. PLENTY OF URINE OUTPUT, VIA GOMZE CATHETER. VITALS HAVE BEEN STABLE, ASIDE A FEW ELEVATED ONES WITH AGITATION (USUALLY). PT HAVING MODERATE AMOUNTS OF SECRETIONS TODAY BOTH IN TRACHEA AND ORAL CAVITY, WHICH IS NEW HE WASN'T LAST NIGHT. PT CONTINUES TO NOT CONSISTENTLY FOLLOW COMMANDS. AFTER RESTING ON AC MODE, PT WILL NEED TO WEAN AGAIN, AND WILL BE REEVALUATED. BED LOW AND LOCKED.
--- NOTE | 2020-06-09 19:30 | NUR ---
ASSUMED CARE RECEIVED REPORT FROM JACINTO ANTHONY. PT INTUBATED AND SEDATED, VENT SETTINGS: AC 16/450/5/30%. PROPOFOL GTT @25MCG/KG/MIN. PT RESPONDS TO PAINFUL STIMULI. LS CLEAR BL UPPER, DIMINISHED LOWERS. COUGH AND GAG PRESENT DURING SUCTION. NSR IN THE 70'S-80'S. BP STABLE. BLE SOFT WRIST RESTRAINTS IN PLACE TO PROTECT LINES, CORDS, AND TUBES. ABD SOFT, BT PRESENT IN ALL 4 QUADRANTS. OG c PIVOT 1.5 @GOAL OF 40ML.TEMP GOMEZ CATHETER PATENT, DRAINING YELLOW URINE. LACERATIONS TO HEAD, FACE, AND ABDOMEN, SEE SHIFT ASSESSMENT.
[2020-06-10 03:25] LABS: PCO2 Arterial 40.3 mmHg (35-45); PO2 Arterial 52.8 mmHg (80-100); pH Blood Arterial 7.43 (7.35-7.45)
[2020-06-10 04:33] LABS: BASOPHILS ABSOLUTE AUTO 0.06 K/mm3 (0.00-0.23); BASOPHILS PERCENT AUTO 1 % (0-2); EOSINOPHILS ABSOLUTE AUTO 0.22 K/mm3 (0.00-0.68); EOSINOPHILS PERCENT AUTO 3 % (0-6); Hematocrit 34.6 % (37.0-53.0); Hemoglobin 11.2 g/dL (13.5-17.5); IMMATURE GRAN ABSOLUTE AUTO 0.01 K/mm3 (0.00-0.10); IMMATURE GRAN PERCENT AUTO 0 % (0-1); LYMPHOCYTES ABSOLUTE AUTO 1.82 K/mm3 (0.84-5.20); LYMPHOCYTES PERCENT AUTO 24 % (21-46); MONOCYTES ABSOLUTE AUTO 1.15 K/mm3 (0.16-1.47); MONOCYTES PERCENT AUTO 15 % (4-13); Mean Corpuscular HGB 31.3 pg (26.0-34.0); Mean Corpuscular HGB Conc 32.4 g/dL (31.5-36.5); Mean Corpuscular Volume 97 fL (80-100); Mean Platelet Volume 9.7 fL (9.1-12.4); NEUTROPHILS ABSOLUTE AUTO 4.29 K/mm3 (1.96-9.15); NEUTROPHILS PERCENT AUTO 57 % (41-73); Platelet Count 196 K/mm3 (150-400); RDW Coefficient Variation 13.4 % (11.7-14.2); RDW Standard Deviation 48.6 fL (35.1-46.3); Red Blood Cell Count 3.58 M/mm3 (4.30-5.90); White Blood Cell Count 7.55 K/mm3 (4.00-11.30)
[2020-06-10 04:53] LABS: Anion Gap 1 mmol/L (6-16); Blood Urea Nitrogen 12 mg/dL (8-24); Bun/Creatinine Ratio 15.2 (12.0-20.0); CO2, Blood 30 mmol/L (21-32); Calcium, Blood 8.3 mg/dL (8.5-10.1); Chloride, Blood 115 mmol/L (98-108); Creatinine, Blood 0.79 mg/dL (0.60-1.20); Glomerular Filtration Rate >60 (60-); Glucose, Blood 122 mg/dL (70-99); Magnesium, Blood 2.1 mg/dL (1.6-2.4); Phosphorus, Blood 3.1 mg/dL (2.5-4.9); Potassium, Blood 3.5 mmol/L (3.5-5.5); Sodium, Blood 146 mmol/L (136-145)
--- NOTE | 2020-06-10 05:48 | NUR ---
SHIFT SUMMARY PT REMAINS INTUBATED, RESPONDS TO VERBAL STIMULI. VENT SETTINGS: AC, 16, 450, 5, 30%. O2 SATS >90%. LS CLEAR, DIMINISHED LOWERS. LR @50ML/HR. PROPOFOL GTT @30MCG/KG/MIN. TUBE FEEDINGS c PIVOT 1.5 REMAIN @ GOAL OF 40ML c MINIMAL RESIDUALS. BLE WRIST RESTRAINTS REMAIN IN PLACE TO PROTECT LINES, CORDS, AND TUBES. GOMEZ CATH DRAINING CLEAR, YELLOW URINE. DURING WEAN PT MOVING ALL EXTREMITIES BUT NOT ABLE TO FOLLOW COMMANDS. ATIVAN AND FENTANYL ADMINISTERED THROUGHOUT THE NIGHT PRN AGITATION.
--- NOTE | 2020-06-10 09:16 | NUR ---
CARE ASSUMED AT 0700. PT SEDATED, INTUBATED, AND RESPONDS TO NOXIOUS STIMULI. AC 16, 450, 5, 30%. QUAD LUMEN TO LEFT FEMORAL VEIN. RUNNING PROPOFOL 30 MCG/KG/MIN. TUBE FEEDS RUNNING AT 40 ML/HR PER GOAL RATE. NO SIGNS OF GI INTOLERANCE, RESIDUAL 0. TEMP GOMEZ CATHETER IN PLACE AND DRAINING YELLOW URINE. BILATERAL SOFT WRIST RESTRAINTS, TOLERATING WELL. DR. GAY TO ROOM AND SEDATION TURNED OFF. AT 0830 ALSO CHANGED VENT SETTINGS TO PRESSURE SUPPORT OF 8/5. PT TOLERATING WELL. THREE ABD LACERATIONS, LIZ ARE IN PLACE. RIGHT EYE LACERATION WITH SEROSANGUINEOUS DRAINAGE. SUTURES TO RIGHT EYELID REMAIN INTACT.
--- NOTE | 2020-06-10 18:14 | NUR ---
SHIFT SUMMARY PT REMAINED OFF SEDATION FROM 0800 TO 1400. PT RESTLESS AT TIMES BUT ABLE TO FOLLOW SIMPLE COMMANDS. PT BECAME INCREASING AGITATED, REACHING FOR ETT TUBE, AND DR. GAY TO ROOM. DR. GAY ASKED TO RESTART PROPOFOL, PROPOFOL AT 30-40 MCG/KG REMAINDER OF SHIFT. PT CONTINUES TO THRASH IN BED OCCASIONALLY, BUT MOSTLY CALM AND SEDATED. RECEIVED INSTRUCTIONS PER DR. GAY TO LEAVE PT ON PS 8/5/30% LONG MINUTE VENTILATION REMAINS >8, PS TOLERATED FOR REMAINDER FOR SHIFT. NO CHANGES TO LACERATIONS ON ABD/EYELID AND SUTURES/LIZ REMAIN INTACT. TUBE FEEDINGS AT GOAL AND NO SIGNS OF GI INTOLERANCE. GOMEZ CATHETER PATENT, DRAINING YELLOW/CLEAR URINE. TWO DOSES OF FENTANYL GIVEN FOR SIGNS OF PAIN, GOOD EFFECT NOTED. PT APPEARS CALM AND COMFORTABLE AT THIS TIME. WILL REPORT TO ONCOMING SHIFT.
--- NOTE | 2020-06-10 21:39 | NUR ---
ASSUMED CARE OF PT, REPORT RCV'D FROM DIDIER RN AND BRITTNEE RN. PT INTUBATED AND SEDATED. VENT SETTINS PS 8/5 30%, SATS>90%. SEDATED WITH PROPOFOL 35 MCG/KG/MIN. PT EASILY AGITATED WITH STIMULATION. PT KICKS LEGS AND PULLS ON RESTRAINTS. WRISTS RED UNDER RESTRAINTS BILATERALLY, WILL INCREASE SEDATION TO MINIMIZE PULLING/FRICTION ON WRISTS. LUNG SOUNDS CLEAR T/O, OCCASIONAL PRODUCTIVE COUGH AND MODERATE AMOUNT OF THICK CROSS/WELLS SECRETIONS FROM ETT. TEMP GOMEZ PATENT AND DRAINING TO GRAVITY. PIVOT 1.5 AT GOAL RATE OF 40 ML/HR WITH 100 ML Q4 FLUSH, 25 ML RESIDUAL AT START OF SHIFT. LEFT GROIN CENTRAL LINE PATENT, DRESSING C/D/I. SEE FULL SHIFT ASSESSMENT
--- NOTE | 2020-06-10 23:22 | NUR ---
PT SWITCHED FROM PS TO AC D/T LOW TIDAL VOLUMES. VENT SETTINGS 16/450/5/30%
--- NOTE | 2020-06-11 02:14 | NUR ---
PT RESTLESS. WHILE PERFORMING ORAL CARE IT WAS NOTICED THAT PT HAD TUBE FEED IN MOUTH AND TUBE FEED SUCTIONED FROM ETT. PT HAS BEEN USING TONGUE TO PUSH AGAINST ETT AND OGT. VERIFIED ETT PLACEMENT AND ASKED RT TO COME AND SECURE TUBE IT APPEARED LOOSE. EXAMINED OGT AND NOTICED THAT TUBE WAS PUSHED OUT AND NEEDED REPLACED. OGT REPLACE, VERIFIED PLACEMENT WITH ASPIRATE, AWAITING XRAY CONFIRMATION. TUBE FEED ON HOLD AT THIS TIME.
[2020-06-11 03:41] LABS: BASOPHILS ABSOLUTE AUTO 0.03 K/mm3 (0.00-0.23); BASOPHILS PERCENT AUTO 1 % (0-2); EOSINOPHILS ABSOLUTE AUTO 0.19 K/mm3 (0.00-0.68); EOSINOPHILS PERCENT AUTO 3 % (0-6); Hematocrit 30.1 % (37.0-53.0); Hemoglobin 9.7 g/dL (13.5-17.5); IMMATURE GRAN ABSOLUTE AUTO 0.01 K/mm3 (0.00-0.10); IMMATURE GRAN PERCENT AUTO 0 % (0-1); LYMPHOCYTES PERCENT AUTO 27 % (21-46); MONOCYTES ABSOLUTE AUTO 0.87 K/mm3 (0.16-1.47); MONOCYTES PERCENT AUTO 16 % (4-13); Mean Corpuscular HGB 31.2 pg (26.0-34.0); Mean Corpuscular HGB Conc 32.2 g/dL (31.5-36.5); Mean Corpuscular Volume 97 fL (80-100); Mean Platelet Volume 9.9 fL (9.1-12.4); NEUTROPHILS PERCENT AUTO 54 % (41-73); Platelet Count 208 K/mm3 (150-400); RDW Coefficient Variation 13.2 % (11.7-14.2); RDW Standard Deviation 47.2 fL (35.1-46.3); Red Blood Cell Count 3.11 M/mm3 (4.30-5.90)
--- NOTE | 2020-06-11 03:45 | NUR ---
PIVOT 1.5 TF RESTARTED. OGT PLACEMENT VERIFIED BY XRAY.
[2020-06-11 04:06] LABS: Anion Gap 4 mmol/L (6-16); Blood Urea Nitrogen 10 mg/dL (8-24); Bun/Creatinine Ratio 15.2 (12.0-20.0); CO2, Blood 26 mmol/L (21-32); Calcium, Blood 6.9 mg/dL (8.5-10.1); Chloride, Blood 118 mmol/L (98-108); Creatinine, Blood 0.66 mg/dL (0.60-1.20); Glomerular Filtration Rate >60 (60-); Glucose, Blood 102 mg/dL (70-99); Magnesium, Blood 1.8 mg/dL (1.6-2.4); Phosphorus, Blood 2.7 mg/dL (2.5-4.9); Sodium, Blood 148 mmol/L (136-145)
--- NOTE | 2020-06-11 06:07 | NUR ---
SHIFT SUMMARY NO ACUTE CHANGES OVERNIGHT. PT REMAINS EASILY AGITATED, MOVES ALL EXTREMETIES, PULLS AGAINST RESTRAINTS. PT REMAINS INTUBATED VENT SETTINGS AC 16/450/5/30% (SWITCHED FROM PS @2300). SEDATED WITH PROPOFOL 50 MCG/KG/MIN. LUNG SOUNDS CLEAR WITH OCCASIONAL WHEEZES. SMALL AMOUNT OF THICK YELLOW/CROSS SPUTUM FROM ETT. NO ADDITIONAL TUBE FEED FROM OGT OR FROM ORAL SUCTIONING. 1700 ML URINARY OUTPUT. NO BOWEL MOVEMENT THIS SHIFT. TUBE FEEDING RESTARTED FOLLOWING OGT REPLACEMENT. LOW RESIDUALS PRIOR TO REPLACEMENT. WILL REPORT TO DAYSWIFT NURSE.
--- NOTE | 2020-06-11 07:05 | NUR ---
ASSUMED CARE: RECEIVED BEDSIDE REPORT FROM ESTIVEN RN. PT IS CURRENTLY ON THE VENT AC/16/450/5/30% PT SATS ARE >90%. NO ACUTE DISTRESS NOTED. PT APPEARS TO BE TOLLERATING THE VENT WELL AT THIS TIME. WILL REVIEW LABS AND ORDERS.
--- NOTE | 2020-06-11 08:23 | NUR ---
FAMILY: "OLDEST DAUGHTER" CALLED TO [facility] TO GET AN UPDATE ON HER DAD. INFORMED HER THE PT IS STABLE AND HERE. TALKED WITH SALES FLOOR ASSOCIATE AND RECEIVED THE OK FOR 2 DAUGHTERS TO COME VISIT, BUT WILL ONLY BE ALLOWED INTO THE ROOM ONE AT A TIME. GAVE INFORMATION TO THE DAUGHTER AND SHE SAID THEY WILL BE COMING FROM [facility].
[2020-06-11 16:15] LABS: Hematocrit 34.8 % (37.0-53.0); Hemoglobin 11.2 g/dL (13.5-17.5)
--- NOTE | 2020-06-11 16:49 | NUR ---
GOMEZ FLUSH: URINE OUTPUT APPEARED TO BE LOW AFTER SEVERAL HOURS. FLUSHED WITH 50ML OF STERILE WATER TO WHICH GOT A 250ML RETURN. FLUSHED ONCE MORE WITH ANOTHER 50ML RETURN NO MORE THAN THE 50ML OF STERILE RETURNED. SMALL CLOTS NOTEDED AND URINE IS NOTED TO BE CRANBERRY IN COLOR.
--- NOTE | 2020-06-11 17:30 | NUR ---
HGB: CALLED DR GAY WITH HGB LAB RESULTS. NO NEW ORDERS.
--- NOTE | 2020-06-11 21:00 | NUR ---
ASSUMED CARE: PT CURRENTLY RESTING, INTUBATED AND SEDATED. APPARENTLY BECAME AGITATED DURING DAYSHIFT. AFEBRILE. IN SB WITH 1ST DEGREE HB. HR IN THE 50-60S. LUNG SOUNDS CLEAR AT THIS TIME. VENT SETTINGS ARE AC 16/450/PEEP 5/ FIO2 35%. OGT IN PLACE WITH TF RUNNING AT GOAL OF 40MLS/HR WITH 200ML FLUSH Q 4 (D/T HIGH NA+ LEVELS). GOMEZ IN PLACE DRAINING TEA COLORED URINE. GOT 2L OUT OF GOMEZ BAG AT BEGINNING OF SHIFT. PT HAS PICC TO VINAYAK. PROPOFOL AT 10MCG AND PRECEDEX AT 0.7MCG. PT HAS MULTIPLE LACERATIONS TO FACE AND ABD FROM TRAUMA. MULTIPLE AREAS ARE STAPLED. WOUND EDGES ARE WELL APPROXIMATED. HAND LEATHER TRIMMER. CLEAN. R EYE IS VERY RED AND HAS SCLERAL EDEMA. WILL CONTINUE TO TITRATE PROPOFOL DOWN. WILL CONTINUE TO MONITOR
[2020-06-12 03:54] LABS: BASOPHILS ABSOLUTE AUTO 0.04 K/mm3 (0.00-0.23); BASOPHILS PERCENT AUTO 1 % (0-2); EOSINOPHILS ABSOLUTE AUTO 0.23 K/mm3 (0.00-0.68); EOSINOPHILS PERCENT AUTO 3 % (0-6); Hematocrit 33.7 % (37.0-53.0); Hemoglobin 10.7 g/dL (13.5-17.5); IMMATURE GRAN ABSOLUTE AUTO 0.02 K/mm3 (0.00-0.10); IMMATURE GRAN PERCENT AUTO 0 % (0-1); LYMPHOCYTES ABSOLUTE AUTO 2.58 K/mm3 (0.84-5.20); LYMPHOCYTES PERCENT AUTO 33 % (21-46); MONOCYTES ABSOLUTE AUTO 0.85 K/mm3 (0.16-1.47); MONOCYTES PERCENT AUTO 11 % (4-13); Mean Corpuscular HGB 30.6 pg (26.0-34.0); Mean Corpuscular HGB Conc 31.8 g/dL (31.5-36.5); Mean Corpuscular Volume 96 fL (80-100); NEUTROPHILS ABSOLUTE AUTO 4.14 K/mm3 (1.96-9.15); NEUTROPHILS PERCENT AUTO 53 % (41-73); Platelet Count 243 K/mm3 (150-400); RDW Coefficient Variation 13.2 % (11.7-14.2); RDW Standard Deviation 46.8 fL (35.1-46.3); White Blood Cell Count 7.86 K/mm3 (4.00-11.30)
[2020-06-12 04:24] LABS: Alanine Aminotransfer (ALT/SGP 25 U/L (12-78); Albumin, Blood 2.5 g/dL (3.4-5.0); Albumin/Globulin Ratio 0.8 (0.8-1.8); Alk Phos 44 U/L (50-136); Anion Gap 3 mmol/L (6-16); Aspartate Aminotrans (AST/SGOT 24 U/L (12-37); Bilirubin, Total 0.4 mg/dL (0.1-1.0); Blood Urea Nitrogen 16 mg/dL (8-24); Bun/Creatinine Ratio 21.8 (12.0-20.0); CO2, Blood 30 mmol/L (21-32); Calcium, Blood 8.5 mg/dL (8.5-10.1); Chloride, Blood 113 mmol/L (98-108); Creatinine, Blood 0.73 mg/dL (0.60-1.20); Globulin, Blood 3.3 g/dL (2.2-4.0); Glomerular Filtration Rate >60 (60-); Glucose, Blood 154 mg/dL (70-99); Magnesium, Blood 2.4 mg/dL (1.6-2.4); Phosphorus, Blood 3.5 mg/dL (2.5-4.9); Potassium, Blood 3.7 mmol/L (3.5-5.5); Sodium, Blood 146 mmol/L (136-145); Total Protein, Blood 5.8 g/dL (6.4-8.2)
[2020-06-12 05:25] LABS: PO2 Arterial 58.7 mmHg (80-100); pH Blood Arterial 7.42 (7.35-7.45)
--- NOTE | 2020-06-12 06:21 | NUR ---
SHIFT SUMMARY: NO ACUTE CHANGES T/O SHIFT. VSS. GOOD URINE OUTPUT. ATTEMPTED TO TITRATE PROPOFOL OFF AND WAS SUCCESSFUL FOR SEVERAL HOURS. PT WAS AWAKE, FOLLOWING COMMANDS, AND WAS ABLE TO REMAIN CALM. HOWEVER PT DID END UP BECOMING AGITATED, PULLING AT RESTRAINTS, KICKING LEGS. GAVE A COUPLE DOSES OF FENTANYL AND A DOSE OF ATIVAN THAT WORKED FOR A SHORT PERIOD. PROPOFOL BACK ON AT 10MCG. WILL PASS REPORT TO ONCOMING RN
--- NOTE | 2020-06-12 15:43 | NUR ---
CARE ASSUMED 0700 PT CURRENTLY RESTING BUT BECOMES AGITATED WHEN FLUSHING LINES/PROVIDING ORAL CARE. PT IS IN SWB PER PROTOCOL. HR IN THE 50'S AND BP IS STABLE. LUNG SOUNDS CLEAR AND CURRENT VENT SETTINGS OF AC 16/450/5/35%. PICC TO VINAYAK INFUSING PROPOFOL 10 MCG, PRECEDEX 0.7 MCG, AND TKO. OGT N PLACE WITH TF RUNNING AT 40 MLS/HR WITH A 200 ML Q4 FLUSH. GOMEZ IN PLACE DRAINING TEA COLORED URINE. LACS TO FACE/ABD HEALING WELL AND SUTURES/LIZ INTACT. DR. EASTMAN AT BEDSIDE AND VENT CHANGED TO PS 8/5, 35%. PT TOLERATING SETTING WELL.
--- NOTE | 2020-06-12 18:44 | NUR ---
SHIFT SUMMARY PT HAS DECREASED AGITATION SINCE THIS MORNING. RESPONDED WELL TO ATIVAN. RESTED T/O SHIFT. PULLINGS AT LINES OCCASIONALY. REMAINS ON PS 8/5, 35%, SPO2 <95%. PT TOLERATED PS WELL. HR SBR 50'S AND OTHER VSS. PRECEDEX AND PROPOFOL REMAIN UNCHANGED. NO SEDATION VACATION TODAY DUE TO AGITATION AND POSITIVE RESPONSE TO PRESSURE SUPPORT. ETT AND OGT PLACEMENT UNCHANGED SINCE MORNING ASSESSMENT. WOUNDS REMAIN D/I. RIGHT EYE APPERANCE REMAINS UNCHANGED SINCE MORNING ASSESSMENT. NO BM THIS SHIFT. WILL ORDER BOWEL CARE PER DR. EASTMAN. WILL REPORT TO NIGHTSHIFT.
--- NOTE | 2020-06-12 18:47 | NUR ---
L GROIN SITE DRSG CHANGE CHANGED AT THIS TIME, SITE WNL WITH NO HEMATOMA OR BLEEDING NOTED, TEGADERM APPLIED.
--- NOTE | 2020-06-12 19:36 | NUR ---
INITAL SHIFT ASSESSMENT PT IS INTUBATED AND SEDATED AT THIS TIME. HE DOES GRIMMACE WITH ORAL CARE AND SHAKE HIS HEAD BACK AND FORTH. HE WILL ALSO PULL ON HIS BILATERAL WRIST RESTRAINTS AND KICK HIS LEGS. PT DOES CALM WITH NO STIMULI. NOT FOLLOWING COMMANDS AT THIS TIME. PRECEDEX AT 0.7 AND PROPOFOL GTT AT 10MCG FOR SEDATION. SEE EMAR WELL ICU FLOW SHEET FOR TITRATIONS. VITALS ARE STABLE AT THIS TIME. HE HRR IN THE 50'S. PT IS ON PRESSURE SUPPORT AND TOLERATING THIS WELL. RRR. SEE RT NOTES FOR ALL VENT SETTING CHANGES T/O SHIFT. ET TUBE IS SECURED WITH OG TUBE WELL. TUBE FEEDING RUNNING AT 40ML/HR AND WITH 200ML FLUSHES. NO RESIDUALS AT THIS TIME. SOFT BILATERAL WRIST RESTRAINTS IN PLACE SKIN CDI WITH GOOD CIRCULATION. PT DOES OVERALL HAVE CDI SKIN. HE HAS WOUNDS TO FACE AND ABD SEE PICTURES IN CHART. PT HAS LIZ IN PLACE TO WOUNDS. ALL WOUNDS ARE HEALING WELL. WILL CON'T TO MONITOR AND KEEP PT SAFE T/O REMAINDER OF SHIFT.
--- NOTE | 2020-06-13 00:26 | NUR ---
SHIFT UPDATE PT CON'T TO BE STABLE WITH NO CHANGES FROM BASELINE. HE DOES WAKE WITH ORAL CARE AND TURNING. PT TOLERATED BED BATH VERY WELL. BRENDON SOFT WRIST RESTRAINTS CON'T TO BE IN PLACE. SKIN CDI WITH GOOD CIRCULATION. WILL CON'T TO MONITOR PT.
[2020-06-13 04:26] LABS: BASOPHILS ABSOLUTE AUTO 0.05 K/mm3 (0.00-0.23); BASOPHILS PERCENT AUTO 1 % (0-2); EOSINOPHILS ABSOLUTE AUTO 0.28 K/mm3 (0.00-0.68); EOSINOPHILS PERCENT AUTO 4 % (0-6); Hematocrit 34.8 % (37.0-53.0); IMMATURE GRAN ABSOLUTE AUTO 0.04 K/mm3 (0.00-0.10); IMMATURE GRAN PERCENT AUTO 1 % (0-1); LYMPHOCYTES ABSOLUTE AUTO 2.38 K/mm3 (0.84-5.20); LYMPHOCYTES PERCENT AUTO 31 % (21-46); MONOCYTES ABSOLUTE AUTO 0.94 K/mm3 (0.16-1.47); MONOCYTES PERCENT AUTO 12 % (4-13); Mean Corpuscular HGB 30.2 pg (26.0-34.0); Mean Corpuscular HGB Conc 31.6 g/dL (31.5-36.5); Mean Corpuscular Volume 96 fL (80-100); Mean Platelet Volume 10.1 fL (9.1-12.4); NEUTROPHILS ABSOLUTE AUTO 4.03 K/mm3 (1.96-9.15); NEUTROPHILS PERCENT AUTO 52 % (41-73); Platelet Count 267 K/mm3 (150-400); RDW Standard Deviation 45.7 fL (35.1-46.3); Red Blood Cell Count 3.64 M/mm3 (4.30-5.90); White Blood Cell Count 7.72 K/mm3 (4.00-11.30)
[2020-06-13 04:42] LABS: Albumin, Blood 2.4 g/dL (3.4-5.0); Anion Gap 5 mmol/L (6-16); Blood Urea Nitrogen 17 mg/dL (8-24); Bun/Creatinine Ratio 24.5 (12.0-20.0); CO2, Blood 29 mmol/L (21-32); Calcium, Blood 8.7 mg/dL (8.5-10.1); Chloride, Blood 111 mmol/L (98-108); Glomerular Filtration Rate >60 (60-); Glucose, Blood 131 mg/dL (70-99); Phosphorus, Blood 3.4 mg/dL (2.5-4.9); Potassium, Blood 3.7 mmol/L (3.5-5.5); Sodium, Blood 145 mmol/L (136-145)
--- NOTE | 2020-06-13 09:40 | NUR ---
PO MEDS HELD PT OPENS EYES TO VERBAL STIMULI AND ANSWERS SOME QUESTIONS BUT DOES NOT FOLLOW DIRECTIONS CONSISTENTLY. PO MEDS HELD FOR ASPIRATION RISK.
--- NOTE | 2020-06-13 10:04 | NUR ---
CARE ASSUMED ASSESSMENT COMPLETED. SCANT SECRETIONS FROM ETT AT THIS TIME, LS CLEAR. REMAINS ON SPONTANEOUS MODE, PS 8/5, FIO2 35%, SPO2 >95%, RR 16, Vt 600'S. LACERATIONS TO FACE AND ABD HEALING WELL, ABX OINTMENT TO R EYE LAC. PT FERNANDEZ BOYER, DOES NOT FOLLOW DIRECTIONS. PRECEDEX 0.7MCG, PROPOFOL 15MCG INFUSING. DR. EASTMAN AT BEDSIDE TO ASSESS, PLAN TO EXTUBATE TODAY.
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
--- NOTE | 2020-06-13 18:36 | NUR ---
END OF SHIFT PRECEDEX SLOWLY TITRATED DOWN TO 0.3MCG T/O SHIFT, PT NOW AWAKE AND CALLING OUT, IS NOT COMBATIVE OR AGRESSIVE. RESTRAINTS DC'D THIS EVENING. PT DIFFICULT TO UNDERSTAND BUT VERBALIZATIONS ARE APPROPRIATE WHEN ABLE TO ARTICULATE, PT REMEMBERS CIRCUMSTANCES PRECIPTATING ARRIVAL TO HOSPITAL. HR 104 SIT, BP ELEVATED, HYDRALAZINE ADMINISTERED WITH GOOD RESULTS. PT EXPECTORATING THICK YELLOW SPUTUM, PO SUCTIONING PRN. O2 2L/NC WITH SPO2 93%. LS COARSE IN BASES. LIZ REMAIN INTACT, DRESSING TO L GROIN CDI. NO BM THIS SHIFT, PLENTY OF URINE OUTPUT, NO CLOTS NOTED IN URINE TODAY. REPORT TO ONCOMING SHIFT.
--- NOTE | 2020-06-13 19:55 | NUR ---
INITAL SHIFT ASSESSMENT PT IS ALERT IN ROOM SITTING UP IN BED. HE IS ABLE TO COMMUNICATE SOME WORDS, BUT SPEECH IS VERY GARBLED AND THIS RN IS UNABLE TO UNDERSTAND MOST OF WHAT HE IS SAYING. PT THEN YELLS AT THIS RN AND IS UPSET. PRECEDEX GTT AT 0.5MCG AT THIS TIME. WILL CON'T TO TITRATE T/O SHIFT NEEDED. RUNNING INTO PICC LINE TO RIGHT UPPER ARM. CDI DRESSING WITH NO S/S OF INFECTION. PT IS ON 2L N/C. NO SOB NOTED AT REST. PT IS PICKING AT HIS LINES AND CORDS, WILL ATTEMPT TO KEEP HIM OUT OF RESTRAINTS T/O SHIFT. GOMEZ CATH IN PLACE CURRENTLY DRAINING CLEAR YELLOW URINE. PT IS NOT PULLING ON CATH AT THIS TIME. PAS STOCKING IN PLACE AND PT IS CONSTANTLY TRYING TO WORK THEM OFF HIS LEGS. WILL GIVE HIM A BREAK LATER IN SHIFT. OVERALL PT IS NOT FOLLOWING ANY COMMANDS/ BUT IS NOT VIOLENT WITH THIS RN AT THIS TIME. WILL CON'T TO MONITOR AND KEEP PT SAFE T/O SHIFT.
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
[2020-06-14 03:13] LABS: BASOPHILS ABSOLUTE AUTO 0.06 K/mm3 (0.00-0.23); BASOPHILS PERCENT AUTO 1 % (0-2); EOSINOPHILS ABSOLUTE AUTO 0.23 K/mm3 (0.00-0.68); EOSINOPHILS PERCENT AUTO 2 % (0-6); Hematocrit 36.7 % (37.0-53.0); Hemoglobin 11.9 g/dL (13.5-17.5); IMMATURE GRAN ABSOLUTE AUTO 0.03 K/mm3 (0.00-0.10); IMMATURE GRAN PERCENT AUTO 0 % (0-1); LYMPHOCYTES ABSOLUTE AUTO 2.36 K/mm3 (0.84-5.20); LYMPHOCYTES PERCENT AUTO 24 % (21-46); MONOCYTES ABSOLUTE AUTO 0.86 K/mm3 (0.16-1.47); MONOCYTES PERCENT AUTO 9 % (4-13); Mean Corpuscular HGB 30.7 pg (26.0-34.0); Mean Corpuscular HGB Conc 32.4 g/dL (31.5-36.5); Mean Corpuscular Volume 95 fL (80-100); Mean Platelet Volume 9.6 fL (9.1-12.4); NEUTROPHILS PERCENT AUTO 64 % (41-73); Platelet Count 306 K/mm3 (150-400); RDW Coefficient Variation 13.1 % (11.7-14.2); RDW Standard Deviation 44.6 fL (35.1-46.3); Red Blood Cell Count 3.88 M/mm3 (4.30-5.90); White Blood Cell Count 9.74 K/mm3 (4.00-11.30)
[2020-06-14 03:36] LABS: Anion Gap 5 mmol/L (6-16); Blood Urea Nitrogen 12 mg/dL (8-24); Bun/Creatinine Ratio 16.9 (12.0-20.0); CO2, Blood 28 mmol/L (21-32); Calcium, Blood 9.2 mg/dL (8.5-10.1); Chloride, Blood 114 mmol/L (98-108); Creatinine, Blood 0.71 mg/dL (0.60-1.20); Glomerular Filtration Rate >60 (60-); Glucose, Blood 120 mg/dL (70-99); Phosphorus, Blood 3.4 mg/dL (2.5-4.9); Potassium, Blood 3.7 mmol/L (3.5-5.5); Sodium, Blood 147 mmol/L (136-145)
--- NOTE | 2020-06-14 05:17 | NUR ---
SHIFT SUMMARY PT CON'T TO BE STABLE WITH NO CHANGES FROM BASELINE. HE IS AGGITATED OFF AND ON T/O SHIFT. PT HAS BEEN GIVEN ATIVAN IV WELL PRECEDEX GTT AT 0.7MCG FOR MOST OF THE SHIFT. HE STILL YELLS OUT AND IS FAIRLY IRRITATBLE WHEN THIS RN CANNOT UNDERSTAND WHAT HE IS TRYING TO COMMUNICATE. PT IS HOWEVER COOPERTIVE THIS AM WITH TURN AND AM MEDS. VITALS ARE STABLE. HE DID RECIEVED HYDRALIZINE IV FOR ELEVATED BP WITH SOME RESPONSE LOWERING BP. PT CON'T TO HAVE GOMEZ CATH IN PLACE. HE HAS PULLED AT CATH A FEW TIMES, BUT CATH REMAINS IN PLACE DRAINING YELLOW URINE. WILL CON'T TO MONITOR AND KEEP PT SAFE T/O REMAINDER OF SHIFT.
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
--- NOTE | 2020-06-14 09:32 | NUR ---
UPDATE DR. EASTMAN IN TO SEE PATIENT, GIVE UPDATE, NEW ORDERS. PT AWARE OF PLACE AND SITUATION, REMAINS AGITATED AND UNCOOPERATIVE AT TIMES. SWALLOWING WATER AND PILLS WITHOUT DIFFICULTY, TOLERATED APPLESAUCE, WILL FEED ORDERED.
--- NOTE | 2020-06-14 18:16 | NUR ---
END OF SHIFT PT REMAINED CONFUSED, PARANOID, AND VERBALLY AGRESSIVE THIS SHIFT, PULLED AT RESTRAINTS ALL DAY. WHEN OUT OF RESTRAINTS, PT WAS THRASHING AND PULLING AT LINES, UNABLE TO KEEP RESTRAINTS OFF FOR MORE THAN A BRIEF BREAK. PRECEDEX AND O2 TITRATED OFF. HR SIT 120'S, BP ELEVATED EARLIER THIS SHIFT, MEDICATED X1 FOR HTN. NEW ORDERS FOR BP AND HR. NO BM THIS SHIFT, URINE REMAINS GREEN BUT IS CLEARING. WOUNDS UNCHANGED. BEDBATH GIVEN, PT TOLERATED FULL LIQUID DIET AND SWALLOWED PILLS WITHOUT DIFFICULTY. PT MEDICAL STATUS, REPORT TO ONCOMING SHIFT.
--- NOTE | 2020-06-14 21:16 | NUR ---
ASSUMING CARE OF PATIENT- 06/14 1900 PATIENT IS ALERT AND IN BED, RESTRAINED X 4. HE CONTINUES TO PULL AT RESTRAINTS AND IS AGITATED. SPEECH IS DIFFICULT TO UNDERSTAND. HE IS MOVING ALL EXTREMITIES EQUALLY. HE FOLLOWS SOME COMMANDS. BEDSIDE FELT HAT MELLOWING MACHINE OPERATOR SHOWS SINUS TACHYCARDIA. BP IS STABLE. GOMEZ CATHETER IS IN PLACE WITH ADEQUATE OUPTUT. PICC LINE IN PLACE TO RIGHT UPPER ARM. LACERATIONS ARE HEALING. CURTAIN OPEN FOR VISIBILITY.
[2020-06-15 04:07] LABS: BASOPHILS ABSOLUTE AUTO 0.06 K/mm3 (0.00-0.23); BASOPHILS PERCENT AUTO 1 % (0-2); EOSINOPHILS ABSOLUTE AUTO 0.14 K/mm3 (0.00-0.68); EOSINOPHILS PERCENT AUTO 2 % (0-6); Hematocrit 36.3 % (37.0-53.0); Hemoglobin 11.9 g/dL (13.5-17.5); IMMATURE GRAN ABSOLUTE AUTO 0.02 K/mm3 (0.00-0.10); IMMATURE GRAN PERCENT AUTO 0 % (0-1); LYMPHOCYTES ABSOLUTE AUTO 2.99 K/mm3 (0.84-5.20); LYMPHOCYTES PERCENT AUTO 33 % (21-46); MONOCYTES ABSOLUTE AUTO 0.84 K/mm3 (0.16-1.47); MONOCYTES PERCENT AUTO 9 % (4-13); Mean Corpuscular HGB 31.1 pg (26.0-34.0); Mean Corpuscular HGB Conc 32.8 g/dL (31.5-36.5); Mean Corpuscular Volume 95 fL (80-100); Mean Platelet Volume 9.3 fL (9.1-12.4); NEUTROPHILS ABSOLUTE AUTO 5.08 K/mm3 (1.96-9.15); NEUTROPHILS PERCENT AUTO 56 % (41-73); Platelet Count 320 K/mm3 (150-400); RDW Coefficient Variation 13.2 % (11.7-14.2); RDW Standard Deviation 46.4 fL (35.1-46.3); Red Blood Cell Count 3.83 M/mm3 (4.30-5.90); White Blood Cell Count 9.13 K/mm3 (4.00-11.30)
[2020-06-15 04:21] LABS: Albumin, Blood 3.2 g/dL (3.4-5.0); Anion Gap 5 mmol/L (6-16); Blood Urea Nitrogen 11 mg/dL (8-24); Bun/Creatinine Ratio 15.3 (12.0-20.0); CO2, Blood 28 mmol/L (21-32); Calcium, Blood 9.3 mg/dL (8.5-10.1); Chloride, Blood 113 mmol/L (98-108); Creatinine, Blood 0.72 mg/dL (0.60-1.20); Glomerular Filtration Rate >60 (60-); Glucose, Blood 103 mg/dL (70-99); Phosphorus, Blood 3.2 mg/dL (2.5-4.9); Potassium, Blood 3.7 mmol/L (3.5-5.5); Sodium, Blood 146 mmol/L (136-145)
--- NOTE | 2020-06-15 06:23 | NUR ---
END OF SHIFT SUMMARY PATIENT REMAINS IMPULSIVE AND ATTEMPTS TO GET OUT OF BED FREQUENTLY DEPSITE RE-DIRECTION. HE REPOSITIONS HIMSELF FREQUENTLY IN BED. PATIENT WAS OUT OF FOUR POINT RESTRAINTS FOR MOST OF THE SHIFT, BUT A ELMER VEST WAS PLACED DUE TO INCREASED FALL RISK. THE PATIENT IS ALSO ON CONTINUOUS VIDEO MONITORING. ATIVAN GIVEN PRN. SPEECH IS DIFFICULT TO UNDERSTAND AT TIMES. THE PATIENT HAS BEEN HYPERTENSIVE, BUT IMPROVED WITH SCHEDULED CLONIDINE. PATIENT IS TACHYCARDIC IN THE LOW 100S-120S, BUT IMPROVED WITH SCHEDULED METOPROLOL. TOLERATING DIET WHEN ABLE TO TAKE PO INTAKE SAFELY WHEN ALERT. NO BM THIS SHIFT. UNABLE TO GIVE BOWEL CARE DUE TO ASPIRATION RISK TONIGHT. GOMEZ CATHETER REMAINS IN PLACE WITH ADEQUATE URINE OUTPUT. LACERATIONS ARE STAPLED AND HEALING WELL.
--- NOTE | 2020-06-15 10:19 | NUR ---
[place] of Care: Care assumed at 0700hr. Patient agitated and confused, attempting to get out of bed. Oriented to self, but confused to place, date/time. Speech is very mumbled and difficulty to understand, but overall able to communicate with staff. No attempts to hit staff this morning, but agitated that he is unable to get out of bed. [place] vest in place for fall prevention, patient very weak and confused. PICC line to VINAYAK patent and intact. [place] cath patent and intact, draining clear yellow urine. Patient also appears to have difficulty managing oral secretions, not coughing, but drooling occasionally out of lt side of mouth. Patient also has lt sided weakness. Hx of CVA, but unknown deficits. Plan to consult with Dr. Vasquez this morning r/t ST/PT/OT eval and possible repeat head CT to rule out acute CVA.
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
--- NOTE | 2020-06-15 21:00 | NUR ---
ASSUMED CARE: PT AWAKE, NOT ORIENTED, SPEECH IS SLURRED. NOT AGITATED AT THIS TIME. PT IS HYPERTENSIVE, HR IN THE 80S. PT HAS CLONIDINE PATCH TO R UPPER CHEST THAT WAS PLACED TODAY. LUNG SOUNDS CLEAR. SPO2 >90% ON RA. HE IS CURRENTLY NPO. SPEECH THERAPY IS TO WORK WITH PT. PICC TO MAGY, CLINIMIX IS INFUSING AT 100MLS/HR. PT IS IN A ELMER. ATTEMPTED TO PULL OFF AT ONE POINT BECAUSE HE NEEDED TO "GO TO THE STORE". REORIENTED PT. ALL HIS LACS AND LIZ LOOK GOOD AND ARE HEALING WELL. GOMEZ IN PLACE. WILL CONTINUE TO MONITOR
[2020-06-16 03:45] LABS: BASOPHILS ABSOLUTE AUTO 0.06 K/mm3 (0.00-0.23); BASOPHILS PERCENT AUTO 1 % (0-2); EOSINOPHILS ABSOLUTE AUTO 0.22 K/mm3 (0.00-0.68); EOSINOPHILS PERCENT AUTO 3 % (0-6); Hematocrit 37.5 % (37.0-53.0); IMMATURE GRAN ABSOLUTE AUTO 0.02 K/mm3 (0.00-0.10); IMMATURE GRAN PERCENT AUTO 0 % (0-1); LYMPHOCYTES ABSOLUTE AUTO 2.06 K/mm3 (0.84-5.20); LYMPHOCYTES PERCENT AUTO 26 % (21-46); MONOCYTES ABSOLUTE AUTO 0.81 K/mm3 (0.16-1.47); MONOCYTES PERCENT AUTO 10 % (4-13); Mean Corpuscular HGB 30.7 pg (26.0-34.0); Mean Corpuscular Volume 96 fL (80-100); Mean Platelet Volume 9.3 fL (9.1-12.4); NEUTROPHILS ABSOLUTE AUTO 4.62 K/mm3 (1.96-9.15); NEUTROPHILS PERCENT AUTO 59 % (41-73); Platelet Count 293 K/mm3 (150-400); RDW Coefficient Variation 13.1 % (11.7-14.2); RDW Standard Deviation 46.4 fL (35.1-46.3); Red Blood Cell Count 3.91 M/mm3 (4.30-5.90); White Blood Cell Count 7.79 K/mm3 (4.00-11.30)
[2020-06-16 04:06] LABS: Albumin, Blood 3.1 g/dL (3.4-5.0); Anion Gap 5 mmol/L (6-16); Blood Urea Nitrogen 16 mg/dL (8-24); Bun/Creatinine Ratio 22.3 (12.0-20.0); CO2, Blood 28 mmol/L (21-32); Chloride, Blood 111 mmol/L (98-108); Creatinine, Blood 0.72 mg/dL (0.60-1.20); Glomerular Filtration Rate >60 (60-); Glucose, Blood 123 mg/dL (70-99); Magnesium, Blood 2.3 mg/dL (1.6-2.4); Phosphorus, Blood 3.4 mg/dL (2.5-4.9); Potassium, Blood 3.6 mmol/L (3.5-5.5); Sodium, Blood 144 mmol/L (136-145)
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
--- NOTE | 2020-06-16 17:22 | NUR ---
SHIFT SUMMARY... TUFF CUFFS HAVE BEEN OFF SINCE 844 THIS SHIFT. PT HAS BEEN VERY PLEASENT AND COOPERATIVE T/O SHIFT. PT PASSED HIS SPEECH EVALUATION AND CURRENTLY HAS A DIET ORDER. PT WORKED WITH PT/OT AND HAS BEEN UP IN THE CHAIR FOR MEALS. PT ALSO HAD A SHOWER TODAY. THE STAPELS WERE REMOVED WNL PER DR. BUCKLYE'S ORDER. GOMEZ D/C'D AT 1600, SMALL AMOUNT OF BLOOD WAS NOTED COMING OUT OF THE PENIS, THIS QUICKLY STOPPED. OF THE TIME OF THIS NOTE THE PT HAS NOT VOIDED SINCE THE GOMEZ WAS REMOVED. PT'S VS STABLE AT THIS TIME. REPORT CALLED TO MED FLOOR RN. CALL LIGHT IN REACH WILL CONTINUE TO MONITOR UNTIL PT TRANSFER.
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
[2020-06-17 06:11] LABS: Albumin, Blood 3.1 g/dL (3.4-5.0); Anion Gap 4 mmol/L (6-16); Blood Urea Nitrogen 24 mg/dL (8-24); Bun/Creatinine Ratio 30.5 (12.0-20.0); CO2, Blood 29 mmol/L (21-32); Calcium, Blood 9.1 mg/dL (8.5-10.1); Chloride, Blood 111 mmol/L (98-108); Creatinine, Blood 0.79 mg/dL (0.60-1.20); Glomerular Filtration Rate >60 (60-); Glucose, Blood 105 mg/dL (70-99); Phosphorus, Blood 3.2 mg/dL (2.5-4.9); Potassium, Blood 4.1 mmol/L (3.5-5.5); Sodium, Blood 144 mmol/L (136-145)
--- NOTE | 2020-06-17 17:23 | NUR ---
SHIFT SUMMARY PATIENT ALERT, ORIENTED, YET FORGETFUL THIS SHIFT. PATIENT IMPULSIVE AND FORGETS TO CALL PRIOR TO STANDING. PATIENT FREQUENTLY REMINDED TO USE CALL LIGHT. PATIENT ON BED ALARM/CHAIR ALARM. PATIENT 1 PERSON ASSIST TO BATHROOOM THIS SHIFT. PATIENT WORKED WITH PT/OT THIS SHIFT. PATIENT COOPERATIVE WITH CARE THIS SHIFT. PATIENT HAS HAD 2 INSTACES OF AGITATION THIS SHIFT, YET REDIRECTABLE. PATIENT CURRENTLY SITTING UP IN BED WATCHING TELEVISION.
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
--- NOTE | 2020-06-17 22:22 | NUR ---
PT'S RESTRAINTS WERE DC'D 06/16/20
--- NOTE | 2020-06-18 01:19 | NUR ---
0025 ELMER VEST PLACED BECAUSE PT KEEPS GETTING OUT OF BED WITHOUT CALLING. BED ALARM ON. PT KNOWS HOW TO SHUT IT OFF WHEN HE GETS OUT OF BED. HE HAS VERY UNSTEADY GAIT AND DOES NOT FOLLOW DIRECTIONS.
[2020-06-18 06:44] LABS: BASOPHILS ABSOLUTE AUTO 0.09 K/mm3 (0.00-0.23); BASOPHILS PERCENT AUTO 1 % (0-2); EOSINOPHILS ABSOLUTE AUTO 0.41 K/mm3 (0.00-0.68); EOSINOPHILS PERCENT AUTO 4 % (0-6); Hematocrit 38.4 % (37.0-53.0); Hemoglobin 12.2 g/dL (13.5-17.5); IMMATURE GRAN ABSOLUTE AUTO 0.03 K/mm3 (0.00-0.10); IMMATURE GRAN PERCENT AUTO 0 % (0-1); LYMPHOCYTES ABSOLUTE AUTO 3.31 K/mm3 (0.84-5.20); LYMPHOCYTES PERCENT AUTO 36 % (21-46); MONOCYTES PERCENT AUTO 11 % (4-13); Mean Corpuscular HGB 30.4 pg (26.0-34.0); Mean Corpuscular HGB Conc 31.8 g/dL (31.5-36.5); Mean Corpuscular Volume 96 fL (80-100); Mean Platelet Volume 9.4 fL (9.1-12.4); NEUTROPHILS ABSOLUTE AUTO 4.45 K/mm3 (1.96-9.15); NEUTROPHILS PERCENT AUTO 48 % (41-73); Platelet Count 313 K/mm3 (150-400); RDW Standard Deviation 46.8 fL (35.1-46.3); Red Blood Cell Count 4.01 M/mm3 (4.30-5.90); White Blood Cell Count 9.29 K/mm3 (4.00-11.30)
--- NOTE | 2020-06-18 07:03 | NUR ---
TOOLMAKER GRADE THREE SUMMARY PT A/O X2 TO SELF AND FAMILY. GARBLED SPEECH, VERY HARD TO UNDERSTAND. PT HAS VERY UNSTEADY GAIT AND HARD TO RE-DIRECT. HE DOES NOT FOLLOW DIRECTIONS AND IS IMPULSIVE. TRIED TO GET UP MULTIPLE TIMES BEFORE RESTRAINTS WERE APPLIED. HE HAS BEEN IN ELMER VEST AND BILATERAL WRIST RESTRAINTS. WRIST RESTRAINTS BECAUSE PT KEPT UNTIEING ELMER. DENIES PAIN, NAUSEA. VSS. BED ALARM ON, PT IS ON CAMERA MONITOR. CALL LIGHT WITHIN REACH, BED IN LOWEST POSITION.
[2020-06-18 07:11] LABS: Albumin, Blood 3.2 g/dL (3.4-5.0); Anion Gap 5 mmol/L (6-16); Blood Urea Nitrogen 20 mg/dL (8-24); Bun/Creatinine Ratio 25.6 (12.0-20.0); CO2, Blood 27 mmol/L (21-32); Calcium, Blood 9.4 mg/dL (8.5-10.1); Chloride, Blood 112 mmol/L (98-108); Creatinine, Blood 0.78 mg/dL (0.60-1.20); Glomerular Filtration Rate >60 (60-); Glucose, Blood 101 mg/dL (70-99); Phosphorus, Blood 3.4 mg/dL (2.5-4.9); Potassium, Blood 3.8 mmol/L (3.5-5.5); Sodium, Blood 144 mmol/L (136-145)
--- NOTE | 2020-06-18 17:32 | NUR ---
SHIFT SUMMARY PATIENT ALERT X3 THIS SHIFT. ORDERS PLACED FOR RESTRAINTS LAST SHIFT DUE TO PATIENT'S IMPULSIVENESS AND LACK OF BALANCE. PATIENT REMAINS IN RESTRAINTS THROUGHOUT THIS SHIFT. PATIENT HAS UNTIED HIS RESTRAINTS MULTIPLE TIMES. PATIENT STATES UNDERSTANDING OF USING THE RESTRAINTS TO REMAIN SAFE AND NOT FALL, THEN ATTEMPTS TO UNTIE THEM. PATIENT HAS ALTERNATED SITTING UP IN THE RECLINER AND LAYING IN BED DURING THIS SHIFT. PATIENT CURRENTLY SITTING UP IN THE CHAIR WATCHING TELEVISION.
--- NOTE | 2020-06-18 22:12 | NUR ---
ELMER AND BILATERAL WRIST RESTRIANTS DC'D AT 2212. PT ONLY TRIES TO GET UP TO USE THE BATHROOM. BED ALARM ON.
--- NOTE | 2020-06-19 06:23 | NUR ---
ROCK CRUSHER SUMMARY PT A.0 X3 WITH FORGETFULNESS. PT APPREARD TO HAVE SLEPT WELL AFTER ZYPRA WAS GIVEN. I HAVE SAT OUT OF PT'S ROOM FOR CLOSER MONITORING. PT ONLY TRIES TO GET UP WHEN HE WANTS TO USE THE BATHROOM. BED ALARM ON, CAMERA MMONITOR ON. VSS THIS MORNING. 2 ASSIST WITH GAITBELT AND FWW WHEN UP.
--- NOTE | 2020-06-19 16:12 | NUR ---
AWAITING PATIENT'S TELEPSYCH CONSULT. CURRENTLY PATIENT IS MORE AGITATED WITH THE BED ALARM ON ALTHOUGH HE IS NOT STEADY. PATIENT IS STUMBLING THROUGH THE ROOM. I HAVE SPOKEN WITH THE PATIENT ABOUT THIS AND HE DOES GET AGITATED LOOKING THROUGH HIS ROOM. HE STATES HE IS LOOKING FOR HIS KEYS, HIS MONEY, AND WANTS TO GO HOME. I HAVE SPOKEN WITH DR. TUCKER ABOUT RESTRAINTS FOR THE PATIENT ALTHOUGH HE IS TOO LARGE FOR ME TO BE ABLE TO PLACE THESE ON MY OWN. I AM CONCERNED ABOUT THE IDEA OF HAVING TO PICK THE PATIENT UP OFF THE FLOOR. HE IS REFUSING MEDICATIONS AND CURRENTLY I'M WAITING TO PLACE THE BED ALARM BACK ON WHEN THE PATIENT STARTS HIS CONSULT. I AM CONCERNED THAT HE WILL NOT TALK WITH THE PSYCHIATRIST. THE PATIENT STILL HAS HIS PICC LINE AND HOLD WAS PLACED AROUND 1500
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
--- NOTE | 2020-06-19 16:59 | NUR ---
SHIFT SUMMARY PATIENT WAS PLACED ON AN INVOLUNTARY HOLD. NO ACUTE CONCERNS AT THIS TIME. HE HAS CALLED CRIMINAL ATTORNEY AND IS AWAITING TO SPEAK WITH WILIAN GRIDER. HE DENIES ANY CONCERNS MINUS WANTING TO LEAVE.
--- NOTE | 2020-06-19 21:07 | NUR ---
1945 ATTEMPTED TELEPSYCH CONSULT, COULD NOT HEAR DR, RESTARTED COMPUTER PER DR AND ONDUTY INSTRUCTIONS, AND CHOSE NEW TIME FOR CONSULT. CONSULT STARTED AT 2014, WE WERE ABLE TO HEAR THE DR THIS TIME. LEFT THE ROOM SO PT AND DR COULD HAVE PRIVACY. CONSULT FINISHED ABOUT 2019.
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
--- NOTE | 2020-06-20 07:36 | NUR ---
assumption of care note- taking over care of patient for day shift. casino shift manager nurse reported that the patient was ranting a lot last night. they also reported that the patient was talking about having a knife and that he was going to stab people. at this time patient is quiet and sleeping. will assess mentation and emotional state when patient wakes up. according to the nightshift nurse he had a hard night. at this time i will assess the patient for any possible concerns.
--- NOTE | 2020-06-20 07:50 | NUR ---
WOKE PATIENT FOR VITALS, PLEASANT DEMEANOR. PATIENT IS RAMBLING ABOUT HOW "YOU NEVER KNOW WHEN YOUR LAST DAY IS, BUT INSTEAD I AWOKE ANOTHER DAY" HE ALSO STATES THAT HE FEELS HE'S BEEN LIED TO FOR MANY YEARS BECAUSE HE ALWAYS THOUGHT THAT TODAY WAS HIS LAST DAY. HE DID TRY TO GET UP AND ALMOST FELL. WE HAD CAUGHT HIM BACK IN THE BED WITHOUT FALLING. HE IS NOW TALKING ABOUT THAT IF WE CANNOT GET THE PICC LINE TAKEN OUT HE WILL TAKE IT HIMSELF. HE IS HAVING A LOT OF RAMBLING TODAY TELLING ALL THE STAFF "MAKE SURE YOU TAKE GOOD CARE OF YOURSELF". HE IS ALSO TRYING TO GET OUT OF THE BED.
--- NOTE | 2020-06-20 10:57 | NUR ---
PATIENT HAS AN ODD AFFECT HE STATES THAT NONE OF HIS WOUNDS HURT ANYMORE, BUT HE FEELSL WANDA HIS FEELINGS ARE HURT. HE DID NOTE THAT HE WAS A BIT UPSET THAT HE WOKE UP. HE AHS BEEN MORE PLEASANT AND UNDERSTANDING SINCE HE HAS GOTTEN UP AND HAD HIS BREAKFAST.
--- NOTE | 2020-06-20 15:14 | NUR ---
PATIENT IS DEFINITELY CONCERNED ABOUT HIS DOG THAT HE SAYS WENT TO [employer] AND ABOUT HIS MONEY AND HIS KEYS. HE STATES "I DON'T CARE WHO I HAVE TO KILL TO GET TO MY DOG, AND IF MY DOG IS HURT THERE WILL BE PEOPLE HURT". HE WAS GETTING INTO A POINT WHERE HE STATES "IF MY DOG GETS HURT THERE WILL BE HELL TO PAY, WHO AM I GOING TO HELLEN THEN? YOU? THE HOSPITAL? I CANT EVEN GET AHOLD OF THE PERSON WHO HAS MY DOG." THE PATIENT IS ALSO PULLING AT THE DRESSING ON HIS PICC LINE. I HAVE EXPRESSED THAT HE NEEDS TO KEEP THAT IN BECAUSE IT IS IN HIS VEIN AT THIS TIME.
--- NOTE | 2020-06-20 15:16 | NUR ---
THE PATIENT IS NOW BEGINNING TO GARBLE AND MAKE INCOHERENT SPEECH. WHEN ASKED IF HE NEEDED SOMETHING HE STATES "I WASN'T TALKING TO YOU, I WAS TALKING TO MYSELF". HE IS CLICKING AND MAKING WEIRD NOISES. DENIES ANY NEED AT THIS TIME. CONTINUING TO MONITOR FOR NEED.
--- NOTE | 2020-06-20 15:19 | NUR ---
PATIENT CURRENTLY SITTING BACK IN THE CHAIR, STILL MAKING INCOHERENT SOUNDS BUT MAKING STATEMENTS WELL "I AINT GONNA , YOU GONNA " AND THEN BACK TO INCOHERENT SOUNDS.
--- NOTE | 2020-06-20 15:52 | NUR ---
PATIENT IS NOW QUIET, DOES SPEAK OCCASSIONALLY AND NO ACUTE CONCERNS. HE NOTES THAT HE WANTS TO KNOW WHERE AND WHO HAS HIS DOG. AT THIS TIME I HAVE NO WAY OF CONTACTING THIS PERSON.
--- NOTE | 2020-06-20 18:48 | NUR ---
SHIFT SUMMARY PATIENT IS PLEASANT, ALERT TO SELF. DENIES ANY PAIN OR SHORTNESS OF BREATH. HE HAS BEEN WAXING AND WANING IN MENTATION. HE REPORTS THAT HE NEEDS TO GO FIND HIS DOG, THAT HE NEEDS HIS PICC LINE OUT, AND THAT HE NEEDS TO BE OUT OF THE HOSPITAL. AFTER TELLING ME YESTERDAY THAT HE HAS 300 IN HIS [place] AT HOME THAT HE NEEDS TO GET HOME TO, HE DID STATE HE DOES NOT TRUST ANYONE AND HE HAS 3000 THAT HE NEEDS TO GO HOME TO NOW. HE REFUSES TO TAKE HIS AFTERNOON DOSE OF ZYPRECA BUT HAS BEEN COMFORTABLE SINCE AROUND 1500.
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
[2020-06-21 07:36] LABS: BASOPHILS ABSOLUTE AUTO 0.12 K/mm3 (0.00-0.23); BASOPHILS PERCENT AUTO 2 % (0-2); EOSINOPHILS PERCENT AUTO 6 % (0-6); Hematocrit 40.3 % (37.0-53.0); Hemoglobin 12.9 g/dL (13.5-17.5); IMMATURE GRAN ABSOLUTE AUTO 0.01 K/mm3 (0.00-0.10); IMMATURE GRAN PERCENT AUTO 0 % (0-1); LYMPHOCYTES ABSOLUTE AUTO 2.88 K/mm3 (0.84-5.20); LYMPHOCYTES PERCENT AUTO 40 % (21-46); MONOCYTES ABSOLUTE AUTO 0.77 K/mm3 (0.16-1.47); MONOCYTES PERCENT AUTO 11 % (4-13); Mean Corpuscular HGB 30.7 pg (26.0-34.0); Mean Corpuscular Volume 96 fL (80-100); Mean Platelet Volume 9.4 fL (9.1-12.4); NEUTROPHILS ABSOLUTE AUTO 3.03 K/mm3 (1.96-9.15); NEUTROPHILS PERCENT AUTO 42 % (41-73); Platelet Count 335 K/mm3 (150-400); RDW Coefficient Variation 13.1 % (11.7-14.2); RDW Standard Deviation 46.5 fL (35.1-46.3); White Blood Cell Count 7.21 K/mm3 (4.00-11.30)
[2020-06-21 07:50] LABS: Alanine Aminotransfer (ALT/SGP 26 U/L (12-78); Albumin, Blood 3.3 g/dL (3.4-5.0); Albumin/Globulin Ratio 0.8 (0.8-1.8); Alk Phos 48 U/L (50-136); Anion Gap 5 mmol/L (6-16); Aspartate Aminotrans (AST/SGOT 13 U/L (12-37); Bilirubin, Total 0.4 mg/dL (0.1-1.0); Blood Urea Nitrogen 22 mg/dL (8-24); Bun/Creatinine Ratio 28.8 (12.0-20.0); CO2, Blood 27 mmol/L (21-32); Calcium, Blood 9.1 mg/dL (8.5-10.1); Chloride, Blood 109 mmol/L (98-108); Creatinine, Blood 0.76 mg/dL (0.60-1.20); Globulin, Blood 3.9 g/dL (2.2-4.0); Glomerular Filtration Rate >60 (60-); Glucose, Blood 103 mg/dL (70-99); Potassium, Blood 4.3 mmol/L (3.5-5.5); Sodium, Blood 141 mmol/L (136-145); Total Protein, Blood 7.2 g/dL (6.4-8.2)
--- NOTE | 2020-06-21 15:50 | NUR ---
SHIFT SUMMARY PATIENT HAS BEEN IN A MUCH BETTER MOOD TODAY. HE DID HAVE ONE OUTBURST TODAY BUT EASILY CALMED DOWN. HE HAS SPENT A LOT OF TIME THINKING AND RESTING. HAS BEEN EASILY DISTRACTED WITH TELEVISION.
--- NOTE | 2020-06-22 02:42 | NUR ---
PT REQUESTING TO SMOKE. NICTOTINE PATCH OFFERED AND PT WAS AGREEABLE. ALERTED AND NICOTINE PATCH WAS RX'D. PT ASLEEP AT THIS TIME BUT PLAN TO COMMENCE WHEN PT AWAKES AND REQUESTS IT AGAIN. WILL ALLOW PT TO SLEEP AT THIS TIME THOUGH PT PREFERS NOT TO BE AWOKEN.
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
--- NOTE | 2020-06-22 10:21 | NUR ---
CALLED ER TO RELAY THAT DR. TUCKER REQUESTING DR. ADAMES IN TO SEE PT AT SOME POINT TODAY.
--- NOTE | 2020-06-22 17:25 | NUR ---
SHIFT SUMMARY PT HAD A GOOD DAY TODAY. ONLY BECAME AGITATED A FEW TIMES TODAY AND WAS EASILY REDIRECTED AND REORIENTED. PT VERY CONFUSED. SEEN BY DR. ADAMES THIS SHIFT. PT INTERVIEWED BY EVERARDO DAIGLE CIRCULAR RIPSAW OPERATOR AND APD TODAY. PLACEMENT IN PROGRESS. NO CHANGES IN ASSESSMENT AT THIS TIME. VS REVIEWED. PT WOBBLY ON FEET. BED/CHAIR ALARM IN USE T/O DAY. WILL CONTINUE TO MONITOR UNTIL TURNOVER IS COMPLETE.
--- NOTE | 2020-06-23 01:49 | NUR ---
06/23/20 0020 PT AWAKE AND AGITATED. CURSING AT TV PROGRAMS. MEDICATED PER DEC FOR AGITATION.
--- NOTE | 2020-06-23 06:44 | NUR ---
06/23/20 0600 PT SLEPT WELL AFTER ANTI-ANXIETY MEDS WERE GIVEN AROUND MID-NIGHT. VITALS STABLE. STILL IS IMPULSIVE WHEN WANTING TO GO TO BR. HE BECOMES IRRITABLE WHEN REMINDED TO CALL STAFF FIRST BEFORE GETTING UP. STATES HE "HATE THAT ALARM!"
--- NOTE | 2020-06-23 17:25 | NUR ---
SHIFT SUMMARY ATTEMPTED TO REMOVED SUTURES IN EYE PER DR. LANDA. SUTURES TOO CLOSE TO EYE TO BE REMOVED. DR. LANDA NOTIFIED AND INSTRUCTED TO LEAVE THEM IN AND ALLOW FOR EYE SWELLING TO GO DOWN MORE. NO ACUTE CHANGES IN ASSESSMENT AT THIS TIME. VS REVIEWED. PLACEMENT IN PROGRESS PER CARE MANAGEMENT. DR. ADAMES IN TO SEE PT, LITTLE MEDICAITON ADJUSTMENTS MADE. WILL CONTINUE TO MONITOR UNTIL TURNOVER IS COMPLETE.
--- NOTE | 2020-06-24 04:33 | NUR ---
06/24/20 0430 PT HAS BEEN AWAKE MOST OF SHIFT. UNHAPPY THAT THIS FACILITY DOES NOT HAVE "GOOD SNACKS" LIKE POPCORN AND POTATOE CHIPS. SEARCHING THE TV PROGRAMS FOR DELIVERY SERVICES THAT WILL BRING SOME TO HIS ROOM. IRRITABLE AND AGITATED ON AND OFF THIS SHIFT. STAFF OFFERED OTHER SNACKS/DRINKS. HE DID CONSUME SOME ORANGE JUICE AND LUCINDA CRACKERS. RN MEDICATED HIM FOR AGITATION THIS AM. STILL IMPULSIVE WHEN WANTING TO GO TO THE BR. BED ALARM ON.
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
--- NOTE | 2020-06-24 15:00 | NUR ---
PT SOME AGITATED ABOUT GOING HOME. CONCERNS ABOUT PAYMENT. TENSION RISING SOME. MED PER EMAR.
--- NOTE | 2020-06-24 15:41 | NUR ---
dr rainey called. he did eye stitches for pt in er. requested dr keith call if there are problems. ph [phone]. called [address] keith. no need at this time. will keep ph # in chart
--- NOTE | 2020-06-24 16:56 | NUR ---
PT MOSTLY PLEASANT T/O DAY. DID WORK WITH P/T AND O/T. PT HAS PAST. CONTINUES TO BE SOME CONFUSED. DID MEDICATE FOR AGITATION ONCE THIS AFT. BEEN WATCHING TV MOST OF AFT. NO NEW CONCERNS TODAY. AMBULATED TO BATHROOM SEVERAL TIMES TODAY TO URINATE. SOME UNSTEADY, BETTER WITH FWW. BED IN LOW POSITION, CALL LITEIN REACH, ALARM ON FOR SAFETY
--- NOTE | 2020-06-25 04:24 | NUR ---
SHIFT SUMMARY ASSUMED CARE OF PT AT 1900. PT IS ALERT AND ORIENTED TO SELF AND SITUATION, DENIES N/T IN EXTREMITES. HEART SOUNDS REGULAR, LUNG SOUNDS DIMINISHED, DENIES CP/SOB. PT HAS MULTIPLE BOWEL MOVEMENTS T/O THE NIGHT. PT IS IMPULSIVE AND WILL JUMP OUT OF BED TO GO TO THE BATHROOM. PT TIMES OF CONFUSION AND SOMETIMES ANGER. PT EYE IS RED WITH STITCHES IN IT, PT STATES THE STITCHES ARE PAINFUL. NO ACUTE EVENTS DURING THE NIGHT. PT SLEPT MOST OF THE NIGHT EXCEPT TO GO TO THE BATHROOM. CALL LIGHT IN REACH, BED IN LOWEST POSTION, BED ALARM ON, CAMERA MONITORING.
--- NOTE | 2020-06-25 18:44 | NUR ---
PT IS AXO2, NO TELE, ON ROOM AIR, BED ALARM ON. PT IS VERY IMPULSIVE AND WILL GO TO THE BATHROOM WITHOUT USING CALL LIGHTS AT TIMES. THIS MORNING PT C/O PAIN ON HIS RIGHT EYE, NOTED INCISION AND MEDICATED PER EMAR WITH TYLENOL AND OINTMENT. NO SOB, CP, N&V. NO ACUTE CHANGES THROUGHOUT THIS SHIFT, AWAITS FOR PLACEMENT. BED IN IN THE LOWEST POSITION, CALL LIGHT WIHTIN REACH, AND WILL CONTINUE MONITOR UNTILL THE NEXT SHIFT RN REPORT.
--- NOTE | 2020-06-26 04:15 | NUR ---
SHIFT SUMMARY ASSUMED CARE OF PT AT 1900. PT IS A/OX2, DENIES N/T IN EXTREMITES. PT HAD MINIMAL OUTBURST THIS PM. PT R EYE IS RED AND INFLAMMED, MEDICATED PER EMAR.HEART SOUNDS REGULAR, LUNG SOUNDS CLEAR, DENIES CP/SOB. PT C/O DIARRHEA AND IS SUSPICIOUS OF HIS MEDICATIONS CAUSEING THIS. ALL BOWEL CARE HELD TODAY. PT IS IMPULSIVE AND WILL GET OUT OF BED TO USE THE RESTROOM, PT IS VERY UNSTEADY ON HIS FEET. BED ALARM ON. NO ACUTE EVENTS DURING THE NIGHT. PT SLEPT MOST OF THE NIGHT. CALL LIGHT IN REACH, BED IN LOWEST POSTION.
--- NOTE | 2020-06-26 15:04 | NUR ---
SHIFT SUMMARY PT IS AXO2. NO TELE, ON ROOM AIR. THIS MORNING PT C/O PAIN IN HIS R EYE, MEDICATED PER EMAR. PT WAS VERY AGITATED TODAY AND STATED WANTING TO GO HOME. CHARGE NURSE TALKED TO THE PT AND EXPLAINED THE SITUATION ABOUT THE 2 MD HOLD. PT STILL ANGRY AND SHOWS IMPULSIVE BEHAVIOR. PT RECEIVED SEROQUEL 50MG PRN FOR AGITATION TODAY. PT TOLERATED WELL, AND CALMED DOWN AFTER AWHILE. BED IS IN THE LOWEST POSITION, BED ALARM IS ON, CONTINUOS MONITORING VIA CAMERA. WILL CONTINUE TO MONITOR UNTIL NEXT SHIFT REPORT.
--- NOTE | 2020-06-26 15:55 | NUR ---
TWO MD HOLD TO AT [address] ADAMES WHO BELIEVES THAT PATIENT WILL NEED GUARDIANSHIP AND PLACEMENT. DR ADAMES TO CONTACT DR. LANDA TO DICUSS A PLAN.
--- NOTE | 2020-06-27 04:24 | NUR ---
SHIFT SUMMARY ASSUMED CARE OF PT AT 1900. PT IS A/OX1, DENIES N/T IN EXTREMITES. LUNG SOUNDS DIMINISED, HEART SOUNDS REGULAR, DENIES CP/SOB. PT HAS BEEN CONINENT AND WALKING TO THE BATHROOM. PT HAS UNSTEADY GAIT AND NEEDS MINIMAL ASSISTANCE. PT WAS VERY ANGRY AND TEARFUL AT THE BEGINNING OF THE SHIFT. PT WAS TALKING ABOUT HOW HE WAS UPSET THAT HE WAS NOT PRESENT WHEN HIS AND HE THINKS THAT HIS DOG IS GOING TO WITHOUT HIM TOO BEUCASE HE IS A PRISONER IN THE HOSPITAL. PT WAS MEDICATED WTIH NIGHTLY DOSE OF SEROQUEL EARLY AND SLEPT T/O THE NIGHT. THIS NURSE ATTEMPTED TO FIND CONTACT INFORMATION FOR A WOMAN NAMED REYNA, WHO IS TAKING CARE OF SAID DOG BUT WAS UNSUCCESSFUL. WILL ASK DAYSHIFT NURSE IF SHE COULD ATTEMPT TO CONTACT [facility] WHERE SHE WORKS AND BRING DOG IN TO HELP PT COPE WITH FEELINGS. CALL LIGHT IN REACH, BED IN LOWEST POSTION, BED ALARM ON.
--- NOTE | 2020-06-27 12:31 | NUR ---
PATIENT INSISTING TO "GET OUT OF HERE." SPOKE TO DR. LANDA BY PHONE, MADE HER AWARE THAT PT PLANNING TO LEAVE AMA. SHE STATED THAT PT'S 2 MD HOLD HAS AND WE CAN NO LONGER KEEP HIM. PATIENT READ AND SIGNED AMA FORM. HAS NO CLOTHING OR SHOES IN ROOM, IS WEARING PAPER SCRUBS.
== END 2020-06-27 12:40 | disposition left against medical advice (07) | DRG 207 ==
LOC: ER 17:02 → MEDS 20:11 → ICUW 20:11 → ICUE 20:11 → MEDS 06-16 18:32
PROVIDERS: Family Medicine; Internal Medicine; Internal Medicine Critical Care Medicine; Student in an Organized Health Care Education/Training Program; ADMIT Surgery
PROC: 5A1955Z Respiratory Ventilation, Greater than 96 Consecutive Hours (ICD-10-PCS; principal; 2020-06-05)
PROC: 08QN3ZZ Repair Right Upper Eyelid, Percutaneous Approach (ICD-10-PCS; 2020-06-05)
PROC: 06HY33Z Insertion of Infusion Device into Lower Vein, Percutaneous Approach (ICD-10-PCS; 2020-06-05)
PROC: 0BH17EZ Insertion of Endotracheal Airway into Trachea, Via Natural or Artificial Opening (ICD-10-PCS; 2020-06-06)
DX: J96.01 Acute respiratory failure with hypoxia (principal); G92 Toxic encephalopathy; J69.0 Pneumonitis due to inhalation of food and vomit; E87.0 Hyperosmolality and hypernatremia; E87.2 Acidosis; K86.1 Other chronic pancreatitis; M62.82 Rhabdomyolysis; N17.9 Acute kidney failure, unspecified; R57.9 Shock, unspecified; S21.119A Laceration without foreign body of unspecified front wall of thorax without penetration into thoracic cavity, initial encounter; S37.019A Minor contusion of unspecified kidney, initial encounter; F33.9 Major depressive disorder, recurrent, unspecified; F03.91 Unspecified dementia, unspecified severity, with behavioral disturbance; S05.91XA Unspecified injury of right eye and orbit, initial encounter; D62 Acute posthemorrhagic anemia; E11.9 Type 2 diabetes mellitus without complications; F15.10 Other stimulant abuse, uncomplicated; G40.909 Epilepsy, unspecified, not intractable, without status epilepticus; I10 Essential (primary) hypertension; Z78.1 Physical restraint status; F43.10 Post-traumatic stress disorder, unspecified; I25.10 Atherosclerotic heart disease of native coronary artery without angina pectoris; Z95.1 Presence of aortocoronary bypass graft; J43.9 Emphysema, unspecified; F17.210 Nicotine dependence, cigarettes, uncomplicated; S01.111A Laceration without foreign body of right eyelid and periocular area, initial encounter; X99.0XXA Assault by sharp glass, initial encounter; E78.5 Hyperlipidemia, unspecified; Z95.5 Presence of coronary angioplasty implant and graft; Z86.73 Personal history of transient ischemic attack (TIA), and cerebral infarction without residual deficits; I25.2 Old myocardial infarction
CPT/HCPCS: 12002; 12013; 12036; 31720; 36415; 36556; 36569; 36600; 51702; 67715; 70450; 71045; 71260; 72125; 74177; 76770; 80048; 80053; 80069; 82330; 82550; 82803; 82947; 83605; 83690; 83735; 84100; 85014; 85018; 85025; 85610; 87070; 87077; 87186; 87205; 90471; 92526; 92610; 93005; 93010; 94002; 94003; 94640; 94760; 96361-59; 96365-59; 96375-59; 96376-59; 97110; 97112; 97116; 97162; 97166; 97530; 97535; 99291-25; 99292; A9270; A9270-GY; C1751; C9113; G0390; G0480; J0360; J0690; J1630; J1650; J1815; J1940; J1956; J2060; J2250; J2270; J2704; J3010; J3411; J3475; J3480; J7030; J7040; J7042; J7060; J7120; P9046; Q9967

== ENCOUNTER 2022-04-01 11:19 | Inpatient (IN) | payer MEDICARE, OTHER ==
[~2022-04-01] VITALS: Ht 170.2 cm; Wt 77.4 kg
[~2022-04-01 11:19] MED LIST changes: +BUPROPION XL150 M1 PO; +ESCI5 PO; +LOSA50 PO; +METF500 PO; +QUET100 PO; +Simvastatin80 MG PO; +TIOT18 INH; +Ventolin/Prove6.7 GM INH
[2022-04-01 12:58] LABS: Albumin, Blood 3.3 g/dL (3.4-5.0); Albumin/Globulin Ratio 0.9 (0.8-1.8); Bilirubin, Total 1.2 mg/dL (0.1-1.0); Bun/Creatinine Ratio 15.8 (12.0-20.0); Calcium, Blood 9.4 mg/dL (8.5-10.1); Creatinine, Blood 1.39 mg/dL (0.60-1.20); Globulin, Blood 3.8 g/dL (2.2-4.0); Potassium, Blood 4.8 mmol/L (3.5-5.5); Total Protein, Blood 7.1 g/dL (6.4-8.2)
[2022-04-01 14:29] LABS: BASOPHILS ABSOLUTE AUTO 0.03 K/mm3 (0.00-0.23); BASOPHILS PERCENT AUTO 0 % (0-2); Hemoglobin 11.1 g/dL (13.5-17.5); Mean Corpuscular HGB Conc 33.6 g/dL (31.5-36.5); Mean Corpuscular Volume 92 fL (80-100); Mean Platelet Volume 10.7 fL (9.1-12.4); Platelet Count 92 K/mm3 (150-400); RDW Coefficient Variation 12.4 % (11.7-14.2); RDW Standard Deviation 42.3 fL (35.1-46.3); Red Blood Cell Count 3.58 M/mm3 (4.30-5.90); White Blood Cell Count 16.79 K/mm3 (4.00-11.30)
[2022-04-01 14:52] LABS: EOSINOPHILS PERCENT AUTO 0 % (0-6); IMMATURE GRAN ABSOLUTE AUTO 0.69 K/mm3 (0.00-0.10); IMMATURE GRAN PERCENT AUTO 4 % (0-1); LYMPHOCYTES PERCENT AUTO 11 % (21-46); MONOCYTES PERCENT AUTO 6 % (4-13); NEUTROPHILS ABSOLUTE AUTO 13.17 K/mm3 (1.96-9.15); NEUTROPHILS PERCENT AUTO 78 % (41-73)
[2022-04-01 15:37] LABS: U Amphetamine Screen DETECTED; U Barbituate Screen Not Detected; U Methamphetamine Screen DETECTED
[2022-04-01 15:38] LABS: U Benzodiazapine Screen Not Detected; U Buprenorphine Screen Not Detected; U Cannabinoids Screen Not Detected; U Cocaine Screen Not Detected; U Methadone Screen Not Detected; U Opiates Screen Not Detected; U Oxycodone Screen Not Detected; U Phencyclidine Screen Not Detected; U Propoxyphene Screen Not Detected
[2022-04-02 03:33] LABS: Hematocrit 33.3 % (37.0-53.0); Hemoglobin 11.1 g/dL (13.5-17.5); Mean Corpuscular HGB 30.7 pg (26.0-34.0); Mean Corpuscular HGB Conc 33.3 g/dL (31.5-36.5); Mean Corpuscular Volume 92 fL (80-100); Mean Platelet Volume 10.3 fL (9.1-12.4); Platelet Count 93 K/mm3 (150-400); RDW Coefficient Variation 12.5 % (11.7-14.2); Red Blood Cell Count 3.62 M/mm3 (4.30-5.90); White Blood Cell Count 14.32 K/mm3 (4.00-11.30)
[2022-04-02 03:57] LABS: Albumin, Blood 2.3 g/dL (3.4-5.0); Albumin/Globulin Ratio 0.7 (0.8-1.8); Bilirubin, Total 0.5 mg/dL (0.1-1.0); Bun/Creatinine Ratio 16.9 (12.0-20.0); Calcium, Blood 7.8 mg/dL (8.5-10.1); Creatinine, Blood 0.95 mg/dL (0.60-1.20); Globulin, Blood 3.2 g/dL (2.2-4.0); Potassium, Blood 3.8 mmol/L (3.5-5.5); Total Protein, Blood 5.5 g/dL (6.4-8.2)
[2022-04-02 04:36] LABS: BAND PERCENT MAN 11 % (0-8); BASOPHILS PERCENT MAN 0 % (0-2); EOSINOPHILS PERCENT MAN 0 % (0-6); LYMPHOCYTES ABSOLUTE MAN 1.43 K/mm3 (0.84-5.20); LYMPHOCYTES PERCENT MAN 10 % (21-46); MONOCYTES ABSOLUTE MAN 0.28 K/mm3 (0.16-1.47); MONOCYTES PERCENT MAN 2 % (4-13); MYELOCYTE ABSOLUTE MAN 0.14 K/mm3 (0.00-0.00); MYELOCYTE PERCENT MAN 1 % (0-0); NEUTROPHILS ABSOLUTE MAN 12.45 K/mm3 (1.96-9.15); SEG NEUTROPHILS PERCENT MAN 76 % (41-73); TOTAL CELLS COUNTED 100
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
--- NOTE | 2022-04-02 08:16 | NUR ---
Received report from Noc RN. Patient sleeping at time of report and then called to get up to bathroom. I unhooked lines and assisted patient, he was very wobbley. He was able to call appropriately when finished and transferred back with SBA.He is on Ra and sats 95%. He is alert to place, year, and self only. He is able to communicate his needs. He has 18ga IV LAC flushed and SL'd, and 20ga IV RW and is infusing NS TKO. Patient is pleasant and cooperative and resting back in bed. MAEW but weak.
--- NOTE | 2022-04-02 11:20 | NUR ---
Patient has been resting off and on. He is independent with positioning for comfort. He has been NPO since midnight to see if they needed to do anything with bite site. Dr terry came by and stated wound care consult and said he could eat. When he awoke he was yelling that we had not fedx him. I explained the next time kitchen was open was for lunch and we had snaks in our fridge. He started yelling that we were starving him and now wants to go AMA and is tired of the bullshit. I brought food from pantry and still complained. Called Dr Pollack and he talked him in to staying. I brought more food that he refused earlier is now eating. IV were pulled when he got dressed and now has no IV's and currently does not want one. He has now gotten undressed and back to beds.
--- NOTE | 2022-04-02 13:43 | NUR ---
Patient has been up to bathroom independently. He ate 100% of lunch supplies. He deneis any current pain. New 22ga in right wrist and is flushed and SL'd. He has been resting when care is not being done.
--- NOTE | 2022-04-02 15:30 | NUR ---
Patient continues to rest and has not been upset since being NPO til 1100. He has been pleasant and cooperative with care. He has been sleeping other than care anbd meals. He ate 100% of dinner and now is laying back down to rest. Have not seen wound care today. VSS. He continues to be stable to getup to bathroom without assist and back to bed and doing well.
--- NOTE | 2022-04-02 18:07 | NUR ---
Patient has been resting since taken over care and has beka up once to bathroom with SBA. He is currently up in chair eating dinner. He asked for anti-diahhrea and talked with Dr Roe and gave order. VSS, he denies any pain or need for intervention.
[2022-04-03 04:02] LABS: BASOPHILS ABSOLUTE AUTO 0.04 K/mm3 (0.00-0.23); BASOPHILS PERCENT AUTO 0 % (0-2); EOSINOPHILS ABSOLUTE AUTO 0.31 K/mm3 (0.00-0.68); EOSINOPHILS PERCENT AUTO 3 % (0-6); Hematocrit 34.1 % (37.0-53.0); Hemoglobin 11.4 g/dL (13.5-17.5); IMMATURE GRAN ABSOLUTE AUTO 0.05 K/mm3 (0.00-0.10); IMMATURE GRAN PERCENT AUTO 0 % (0-1); LYMPHOCYTES ABSOLUTE AUTO 1.69 K/mm3 (0.84-5.20); LYMPHOCYTES PERCENT AUTO 14 % (21-46); MONOCYTES ABSOLUTE AUTO 0.82 K/mm3 (0.16-1.47); MONOCYTES PERCENT AUTO 7 % (4-13); Mean Corpuscular HGB 30.5 pg (26.0-34.0); Mean Corpuscular HGB Conc 33.4 g/dL (31.5-36.5); Mean Corpuscular Volume 91 fL (80-100); Mean Platelet Volume 11.4 fL (9.1-12.4); NEUTROPHILS ABSOLUTE AUTO 8.79 K/mm3 (1.96-9.15); NEUTROPHILS PERCENT AUTO 75 % (41-73); Platelet Count 107 K/mm3 (150-400); RDW Coefficient Variation 12.4 % (11.7-14.2); RDW Standard Deviation 41.5 fL (35.1-46.3); Red Blood Cell Count 3.74 M/mm3 (4.30-5.90)
[2022-04-03 04:24] LABS: Calcium, Blood 8.4 mg/dL (8.5-10.1); Creatinine, Blood 0.79 mg/dL (0.60-1.20); Potassium, Blood 3.6 mmol/L (3.5-5.5)
--- NOTE | 2022-04-03 05:50 | NUR ---
PT REPORT CALLED TO JACINTO CARLIN ON MEDICAL AND PT TRASFERRED VIA WHEELCHAIR. VSS THROUT THE PART OF THE SHIFT THAT THIS RN HAD CARE OF THE PT. PT DID WELL BEING INDEPENDANT TO THE TOILETTE.
--- NOTE | 2022-04-03 06:15 | NUR ---
ICU 03 TRANSFER. REPORT TAKEN FROM THOMAS CASEY. PATIENT AXO X 4. PERSONAL BELONGINGS WITH PATIENT. IV ABX STARTED. PATIENT RESTING IN BED. CALL LIGHT IN REACH.
--- NOTE | 2022-04-03 13:17 | NUR ---
PERFORMED DRESSING CHANGE WITH WOUND OBSERVATION AT APPROXIMATELY 1305. PATIENT TOLERATED WELL. MINOR DISCHARGE NOTED. RED AREA SURROUNDING WOUND DOES NOT EXTEND TO THE OUTLINES OF THE MARKER FROM INITIAL OBVSERVATION. APPLIED NEW DRESSING, MARKED WITH TODAYS DATE, AND LEFT CALL LIGHT WITHIN REACH.
--- NOTE | 2022-04-03 17:15 | NUR ---
SHIFT HAS BEEN MOSTLY UNREMARKABLE. CLIENT REPORTED PAIN THIS MORNING, TREATED PER EMR. PATIENT IS INDEPENDENT WITHIN ROOM. CHANGED WOUND DRESSING THIS AFTERNOON AND ASSESSED WOUND. NO DISTRESS NOTED. CALL LIGHT LEFT WITHIN REACH.
[2022-04-04 04:36] LABS: BASOPHILS ABSOLUTE AUTO 0.03 K/mm3 (0.00-0.23); BASOPHILS PERCENT AUTO 0 % (0-2); EOSINOPHILS ABSOLUTE AUTO 0.31 K/mm3 (0.00-0.68); EOSINOPHILS PERCENT AUTO 3 % (0-6); Hematocrit 34.2 % (37.0-53.0); Hemoglobin 11.5 g/dL (13.5-17.5); IMMATURE GRAN ABSOLUTE AUTO 0.04 K/mm3 (0.00-0.10); IMMATURE GRAN PERCENT AUTO 0 % (0-1); LYMPHOCYTES ABSOLUTE AUTO 1.78 K/mm3 (0.84-5.20); LYMPHOCYTES PERCENT AUTO 17 % (21-46); MONOCYTES ABSOLUTE AUTO 1.17 K/mm3 (0.16-1.47); MONOCYTES PERCENT AUTO 11 % (4-13); Mean Corpuscular HGB 30.2 pg (26.0-34.0); Mean Corpuscular HGB Conc 33.6 g/dL (31.5-36.5); Mean Corpuscular Volume 90 fL (80-100); Mean Platelet Volume 10.8 fL (9.1-12.4); NEUTROPHILS ABSOLUTE AUTO 7.28 K/mm3 (1.96-9.15); NEUTROPHILS PERCENT AUTO 69 % (41-73); Platelet Count 196 K/mm3 (150-400); RDW Coefficient Variation 12.4 % (11.7-14.2); RDW Standard Deviation 40.9 fL (35.1-46.3); Red Blood Cell Count 3.81 M/mm3 (4.30-5.90); White Blood Cell Count 10.61 K/mm3 (4.00-11.30)
--- NOTE | 2022-04-04 05:38 | NUR ---
SHIFT SUMMARY: PT IS A/OX4. HE WAS INDEPENDENT IN THE ROOM AND CALLED FOR OTHER NEEDS APPROPRIATELY. HIS VINAYAK REMAINS ERYTHEMATOUS/TENDER, BUT THE PT DID NOT NEED ANY PRN PAIN MEDICATION. THE WERE NO OTHER CHANGES TO REPORT THIS SHIFT.
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
--- NOTE | 2022-04-04 17:54 | NUR ---
PT A&O, FOLLOWS COMMANDS. PTS WOUND WITH MORE PURULENT DRAINAGE TODAY. DRESSING CHANGED, ABD PAD APPLIED WITH KERLIX. SURGERY CONSULTED, PT TO HAVE DEBRIDEMENT TOMORROW, NPO AFTER MIDNIGHT. WOUND CX SENT PER ORDERS. CONTINUE IV ANTIBIOTICS. CONTINUE TO MONITOR.
--- NOTE | 2022-04-04 18:21 | NUR ---
THIS GELATIN MAKER UTILITY HAS REVIEWED NOTES AND ASSESSMENTS BY LOWELL CASEY AND AGREE WITH THEM.
[2022-04-05 01:16] LABS: SARS-Cov-2 (COVID-19) PCR, MMC POSITIVE (NEGATIVE)
--- NOTE | 2022-04-05 04:17 | NUR ---
SHIFT SUMMARY: PT IS A/OX4. THE PT TESTED + FOR HIS PRE-PROCEDURE COVID SWAB. HE IS INDEPENDENT IN THE ROOM AND WILL USE HIS CALL LIGHT FOR NEEDS. THE PT DID NOT HAVE C/O PAIN. RUE IS ERYTHEMATOUS AND HAS PURULENT DRAINAGE. THE DRESSING WAS CHANGED / DAYSHIFT AND REINFORCED THE NOC SHIFT. NO OTHER CHANGES TO REPORT.
--- NOTE | 2022-04-05 12:23 | NUR ---
AMA- PT LEAVING AMA PT BECAME IRATE WHEN LEARNING HIS SURGERY WAS SCHEDULED FOR 1400 THIS SHIFT. PT STATES HE WAS TOLD IT WOULD BE THIS MORNING AND HE WOULD NOT WAIT ANY LONGER. PT BEGAN TO USE FOUL LANGUAGE WITH STAFF AND THROW THINGS IN THE ROOM. HE STATED SEVERAL TIMES HE WOULD LEAVE OVER STAYING THAT LONG FOR SURGERY. PT EDUCATED ON IMPORTANCE OF ABX AND SURGERY, THE DANGER OF THE INFECTION IN HIS ARM, THE POSSIBILITY OF LIMB LOSS IF INFECTION PROCEEDED TO GET WORSE. PT STATED HE REFUSED ABX AND SURGERY AND WOULD HELLEN THE HOSPITAL IF HIS INFECTION GETS WORSE SINCE WE DID NOT TAKE HIM TO SURGERY THIS AM. WAS NOTIFED, IV REMOVED, AMA SIGNED. PT LEFT FROM ROOM JUST BEFORE MD ARRIVED TO SPEAK WITH HIM. DAY SURGERY NOTIFIED.
== END 2022-04-05 12:20 | disposition left against medical advice (07) | DRG 871 ==
LOC: ER 11:19 → MEDS 17:15 → ICUE 17:16 → MEDS 17:16 → ICUW 17:16 → ICUE 19:59 → MEDS 04-03 05:42
PROVIDERS: Family Medicine; Nurse Practitioner Acute Care; Orthopaedic Surgery; Physician Assistant; ADMIT Internal Medicine
DX: A40.0 Sepsis due to streptococcus, group A (principal); U07.1 COVID-19; L03.113 Cellulitis of right upper limb; L02.413 Cutaneous abscess of right upper limb; R65.20 Severe sepsis without septic shock; S41.151A Open bite of right upper arm, initial encounter; F10.10 Alcohol abuse, uncomplicated; K59.00 Constipation, unspecified; J44.9 Chronic obstructive pulmonary disease, unspecified; I10 Essential (primary) hypertension; F15.10 Other stimulant abuse, uncomplicated; E11.9 Type 2 diabetes mellitus without complications; F43.10 Post-traumatic stress disorder, unspecified; W50.3XXA Accidental bite by another person, initial encounter; F17.210 Nicotine dependence, cigarettes, uncomplicated; I25.10 Atherosclerotic heart disease of native coronary artery without angina pectoris; D72.829 Elevated white blood cell count, unspecified; I25.2 Old myocardial infarction; Z86.73 Personal history of transient ischemic attack (TIA), and cerebral infarction without residual deficits; Z95.5 Presence of coronary angioplasty implant and graft; Z98.890 Other specified postprocedural states; Z88.0 Allergy status to penicillin; Z79.51 Long term (current) use of inhaled steroids; Z79.899 Other long term (current) drug therapy; Z79.84 Long term (current) use of oral hypoglycemic drugs; Z79.811 Long term (current) use of aromatase inhibitors; Z53.29 Procedure and treatment not carried out because of patient's decision for other reasons
CPT/HCPCS: 36415; 73201; 80048; 80053; 82550; 82947; 83605; 85025; 86140; 87040; 87070; 87075; 87147; 87205; 96365-59; 96375-59; 99285-25; A9270; J0295; J1170; J1650; J2405; J7030; J7040; Q9967; U0004

== ENCOUNTER 2022-09-09 11:22 | Emergency (ER) | payer MEDICARE, OTHER ==
[~2022-09-09] VITALS: Ht 170.2 cm; Wt 81.7 kg
[2022-09-09] MEDS ORDERED: IRBESARTAN150 M3 PO (11:41)
[2022-09-09] MEDS ORDERED: TAMSULOSIN HCL0.4 M1 PO (11:41)
== END 2022-09-09 12:43 | disposition left against medical advice (07) ==
LOC: ER 11:22
DX: R19.7 Diarrhea, unspecified (principal); R11.10 Vomiting, unspecified; E11.9 Type 2 diabetes mellitus without complications; F17.200 Nicotine dependence, unspecified, uncomplicated; Z53.21 Procedure and treatment not carried out due to patient leaving prior to being seen by health care provider; Z88.0 Allergy status to penicillin; Z79.899 Other long term (current) drug therapy
CPT/HCPCS: 99284

== ENCOUNTER 2022-09-13 17:14 | Emergency (ER) | payer MEDICARE, OTHER ==
[~2022-09-13] VITALS: Ht 170.2 cm; Wt 69.0 kg
[~2022-09-13 17:14] MED LIST changes: +IRBESARTAN150 M3 PO; +TAMSULOSIN HCL0.4 M1 PO
[2022-09-13 19:53] LABS: BASOPHILS ABSOLUTE AUTO 0.04 K/mm3 (0.00-0.23); BASOPHILS PERCENT AUTO 1 % (0-2); EOSINOPHILS ABSOLUTE AUTO 0.15 K/mm3 (0.00-0.68); EOSINOPHILS PERCENT AUTO 2 % (0-6); Hematocrit 40.5 % (37.0-53.0); Hemoglobin 13.6 g/dL (13.5-17.5); IMMATURE GRAN ABSOLUTE AUTO 0.02 K/mm3 (0.00-0.10); IMMATURE GRAN PERCENT AUTO 0 % (0-1); LYMPHOCYTES ABSOLUTE AUTO 2.96 K/mm3 (0.84-5.20); LYMPHOCYTES PERCENT AUTO 38 % (21-46); MONOCYTES ABSOLUTE AUTO 0.74 K/mm3 (0.16-1.47); MONOCYTES PERCENT AUTO 10 % (4-13); Mean Corpuscular HGB 30.9 pg (26.0-34.0); Mean Corpuscular HGB Conc 33.6 g/dL (31.5-36.5); Mean Corpuscular Volume 92 fL (80-100); Mean Platelet Volume 9.9 fL (9.1-12.4); NEUTROPHILS ABSOLUTE AUTO 3.79 K/mm3 (1.96-9.15); NEUTROPHILS PERCENT AUTO 49 % (41-73); Platelet Count 229 K/mm3 (150-400); RDW Coefficient Variation 12.6 % (11.7-14.2); RDW Standard Deviation 42.9 fL (35.1-46.3)
[2022-09-13 20:10] LABS: Albumin, Blood 3.2 g/dL (3.4-5.0); Bilirubin, Total 0.3 mg/dL (0.1-1.0); Bun/Creatinine Ratio 17.6 (12.0-20.0); Calcium, Blood 8.8 mg/dL (8.5-10.1); Creatinine, Blood 0.8 mg/dL (0.60-1.20); Globulin, Blood 3.1 g/dL (2.2-4.0); Magnesium, Blood 1.7 mg/dL (1.6-2.4); Potassium, Blood 4.5 mmol/L (3.5-5.5); Total Protein, Blood 6.3 g/dL (6.4-8.2)
[2022-09-13] MEDS ORDERED: ONDA4ODT MM (20:29)
[2022-09-13] MEDS ORDERED: LOPE2C PO (20:29)
== END 2022-09-13 20:42 | disposition home or self-care (01) ==
LOC: ER 17:14
PROVIDERS: Emergency Medicine
DX: K52.9 Noninfective gastroenteritis and colitis, unspecified (principal); E11.9 Type 2 diabetes mellitus without complications; E87.20 Acidosis, unspecified; I25.2 Old myocardial infarction; F17.200 Nicotine dependence, unspecified, uncomplicated; Z88.0 Allergy status to penicillin; Z88.8 Allergy status to other drugs, medicaments and biological substances; Z79.899 Other long term (current) drug therapy; Z86.73 Personal history of transient ischemic attack (TIA), and cerebral infarction without residual deficits; Z95.5 Presence of coronary angioplasty implant and graft
CPT/HCPCS: 36415; 80053; 83605; 83690; 83735; 85025; A9270

== ENCOUNTER → 2023-04-05 | Outpatient (CLI) | payer MEDICARE, OTHER ==
[~2023-04-05] MED LIST changes: +LOPE2C PO; +ONDA4ODT MM
[2023-04-05 14:18] LABS: Albumin, Blood 3.4 g/dL (3.4-5.0); Albumin/Globulin Ratio 1.2 (0.8-1.8); Bilirubin, Total 0.4 mg/dL (0.1-1.0); Bun/Creatinine Ratio 14.8 (12.0-20.0); Calcium, Blood 8.7 mg/dL (8.5-10.1); Creatinine, Blood 1.08 mg/dL (0.60-1.20); Globulin, Blood 2.9 g/dL (2.2-4.0); Potassium, Blood 4.2 mmol/L (3.5-5.5); Total Protein, Blood 6.3 g/dL (6.4-8.2)
== END | disposition home or self-care (01) ==
LOC: LAB 14:05 → LAB SHORT 14:05
PROVIDERS: Nurse Practitioner Family
DX: E11.9 Type 2 diabetes mellitus without complications (principal)
CPT/HCPCS: 80053

== ENCOUNTER 2024-02-20 05:04 | Day surgery (SDC) | payer MEDICARE, OTHER ==
[~2024-02-20] VITALS: Ht 170.2 cm; Wt 71.2 kg
[~2024-02-20 05:04] MED LIST changes: +IRBE150; +METF500; +PSEU120ER PO
[2024-02-20] MEDS ORDERED: Povidone-Iodine 450 DROP/30 ML Solution ONE (05:51)
[2024-02-20] MEDS ORDERED: NS 500 ML IV ONE (05:51)
[2024-02-20] MEDS ORDERED: PHENYLEPHRINE\\TROPICAMIDE\\TETRACAINE OPHTHALMIC DILATING SOLN RIGHTEYE PRN (06:00)
[2024-02-20] MEDS ORDERED: Lidocaine HCl/Pf 1% 5 ML VIAL XX SCH (06:00)
[2024-02-20] MEDS ORDERED: Povidone-Iodine 450 DROP/30 ML Solution RIGHTEYE SCH (06:00)
[2024-02-20] MEDS ORDERED: Moxifloxacin HCL 0.5 MG/0.1 ML 0.4MLSYR RIGHTEYE SCH (06:00)
[2024-02-20] MEDS ORDERED: Balanced Salt Epinephrine Irrigation Solution 500 mL IR SCH (06:00)
[2024-02-20] MEDS ORDERED: NS 1,000 ML IV ONE (11:50)
--- NOTE | 2024-02-20 11:54 | NUR ---
02/20/24 1154 Laura Malcolm TETRACARLA: [id number] MY: [id number]
[2024-02-20] MEDS ORDERED: FentaNYL Citrate 50 MCG/ML 2 ML Injection ONE (11:59)
[2024-02-20] MEDS ORDERED: Midazolam HCl 1MG / ML 2ML Vial ONE (11:59)
[2024-02-20] MEDS ORDERED: Tetracaine HCl 0.5% Opth Soln 15 ml RIGHTEYE ONE (12:36)
--- NOTE | 2024-02-20 13:12 | NUR ---
02/20/24 1312 THAO HERNÁNDEZ LUNGS SAME BASELINE. DIMINISHED T/O. WHEEZE CLEARED AFTER COUGH.
[2024-02-20 13:15] VITALS: BP 113/74
--- NOTE | 2024-02-20 14:53 | NUR ---
02/20/24 1453 Shaneka Davis SURGICAL SITE PREPPED BY FIFI ALEJANDRO, ENGINEHOUSE BRAKEMAN TRAVELER
== END 2024-02-20 13:31 | disposition home or self-care (01) ==
LOC: ORSCSDS 05:04
PROVIDERS: Student in an Organized Health Care Education/Training Program
PROC: 08RJ3JZ Replacement of Right Lens with Synthetic Substitute, Percutaneous Approach (ICD-10-PCS; principal; 2024-02-20 12:30)
DX: E11.36 Type 2 diabetes mellitus with diabetic cataract (principal); H25.11 Age-related nuclear cataract, right eye; Z96.1 Presence of intraocular lens; I10 Essential (primary) hypertension; I25.2 Old myocardial infarction; I25.10 Atherosclerotic heart disease of native coronary artery without angina pectoris; E78.5 Hyperlipidemia, unspecified; F17.210 Nicotine dependence, cigarettes, uncomplicated; Z79.84 Long term (current) use of oral hypoglycemic drugs; Z79.82 Long term (current) use of aspirin; Z79.899 Other long term (current) drug therapy
CPT/HCPCS: 82947; J2250; J3010; J7040; V2632

== ENCOUNTER → 2024-06-06 | Outpatient (CLI) | payer MEDICARE, OTHER ==
[~2024-06-06] MED LIST changes: +JARDIANCE25 MG PO
== END | disposition home or self-care (01) ==
LOC: LAB 13:36 → LAB SHORT 13:36
DX: D10.4 Benign neoplasm of tonsil (principal); K62.89 Other specified diseases of anus and rectum
CPT/HCPCS: 88305

== ENCOUNTER 2024-11-25 12:27 | Inpatient (IN) | payer MEDICARE, OTHER ==
[~2024-11-25] VITALS: Ht 170.2 cm; Wt 70.2 kg
[~2024-11-25 12:27] MED LIST changes: +JARDIANCE10 MG PO; -JARDIANCE25 MG PO
[2024-11-25 14:00] LABS: BASOPHILS ABSOLUTE AUTO 0.07 K/mm3 (0.00-0.23); BASOPHILS PERCENT AUTO 1 % (0-2); EOSINOPHILS ABSOLUTE AUTO 0.05 K/mm3 (0.00-0.68); EOSINOPHILS PERCENT AUTO 0 % (0-6); Hemoglobin 13.8 g/dL (13.5-17.5); IMMATURE GRAN ABSOLUTE AUTO 0.09 K/mm3 (0.00-0.10); IMMATURE GRAN PERCENT AUTO 1 % (0-1); LYMPHOCYTES ABSOLUTE AUTO 1.67 K/mm3 (0.84-5.20); LYMPHOCYTES PERCENT AUTO 12 % (21-46); MONOCYTES ABSOLUTE AUTO 1.25 K/mm3 (0.16-1.47); MONOCYTES PERCENT AUTO 9 % (4-13); Mean Corpuscular HGB 30.6 pg (26.0-34.0); Mean Corpuscular HGB Conc 34.5 g/dL (31.5-36.5); Mean Corpuscular Volume 89 fL (80-100); Mean Platelet Volume 8.9 fL (9.1-12.4); NEUTROPHILS ABSOLUTE AUTO 10.76 K/mm3 (1.96-9.15); NEUTROPHILS PERCENT AUTO 78 % (41-73); Platelet Count 376 K/mm3 (150-400); RDW Coefficient Variation 12.8 % (11.7-14.2); RDW Standard Deviation 41.9 fL (35.1-46.3); Red Blood Cell Count 4.51 M/mm3 (4.30-5.90); White Blood Cell Count 13.89 K/mm3 (4.00-11.30)
[2024-11-25 14:24] LABS: Albumin, Blood 2.9 g/dL (3.4-5.0); Albumin/Globulin Ratio 0.6 (0.8-1.8); Bilirubin, Total 0.4 mg/dL (0.1-1.0); Bun/Creatinine Ratio 13.8 (12.0-20.0); Calcium, Blood 9.2 mg/dL (8.5-10.1); Creatinine, Blood 0.58 mg/dL (0.60-1.20); Globulin, Blood 4.9 g/dL (2.2-4.0); Potassium, Blood 4.2 mmol/L (3.5-5.5); Total Protein, Blood 7.8 g/dL (6.4-8.2)
[2024-11-25] MEDS ORDERED: Ipratropium/Albuterol SulF 2.5-0.5MG/3 ML Amp INH PRN ×2 (16:25→18:15)
[2024-11-25] MEDS ORDERED: MethylPREDNISolone Sod Succ 125 MG Vial IV ONE (17:15)
[2024-11-25] MEDS ORDERED: Azithromycin 500 MG in NS 250 ML IV ONE (17:15)
[2024-11-25] MEDS ORDERED: CefTRIAXone Sodium 2,000 MG in NS 100 ML IV ONE (17:15)
[2024-11-25] MEDS ORDERED: Ondansetron HCl 2 MG / ML 2ML Vial IV PRN (18:15)
[2024-11-25] MEDS ORDERED: Acetaminophen 325 MG TABLET PO PRN (18:15)
[2024-11-25] MEDS ORDERED: FLU VACC TS2024-25(6MOS UP)/PF 45 MCG/0.5 ML SYRINGE IM ONE (18:20)
[2024-11-25] MEDS ORDERED: NS 1,000 ML IV SCH (18:30)
[2024-11-25] MEDS ORDERED: Enoxaparin 40 MG/0.4 ML SYR SC SCH (19:00)
[2024-11-25 19:11] LABS: Influenza A, PCR NEGATIVE (NEGATIVE); Influenza B, PCR NEGATIVE (NEGATIVE); Resp Syncytial Virus, PCR NEGATIVE (NEGATIVE); SARS-Cov-2 (COVID-19) PCR, MMC NEGATIVE (NEGATIVE)
[2024-11-25 19:31] VITALS: BP 151/96
[2024-11-25] MEDS ORDERED: Flomax0.4 MG PO (19:36)
[2024-11-25] MEDS ORDERED: GLUCOPHAGE1000 M1 PO (19:38)
[2024-11-25] MEDS ORDERED: ESCI10 PO (19:42)
[2024-11-25] MEDS ORDERED: METO50ER PO (19:44)
[2024-11-25] MEDS ORDERED: BASAGLAR K100 UNIT/8 SC (19:49)
[2024-11-25] MEDS ORDERED: FLUT1DIS2 INH (19:54)
[2024-11-25] MEDS ORDERED: ALBU90OI INH (19:56)
[2024-11-25] MEDS ORDERED: NS 1,000 ML IV ONE (20:43)
[2024-11-25] MEDS ORDERED: Albuterol HFA200 ACT/6.7 GM INH INH PRN (23:50)
[2024-11-25] MEDS ORDERED: Mometasone/Formoterol MDI 100/5 mcg 13 GM INH SCH (23:55)
[2024-11-26 00:42] VITALS: BP 127/73
[2024-11-26 04:19] VITALS: BP 139/71
[2024-11-26] MEDS ORDERED: MethylPREDNISolone Sod Succ 125 MG Vial IV SCH (05:00)
--- NOTE | 2024-11-26 05:43 | NUR ---
PT ADMITTED FROM ED EARLY IN SHIFT. VS WNL, USES URINAL AND IS CONTINENT. CAREGIVER AT BEDSIDE. TELE IS NSR. CONTINUOUS OXCIMETRY WITH RA SAT AT ONLY 78%, SATS 89-90 WITH 5L. CBG 256 AT HS, NO COVERAGE. PT WITH OCCASIONAL CRACKLES KIN L/S T/O. NS @75 ML/HR X1 BAG CONTINUES TO RUN THIS AM. A&O X3 COULD NOT GET DATE CORRECT. RECIEVING NEBS PER RT. AWAITING LABS THIS AM.
[2024-11-26] MEDS ORDERED: Insulin Human Lispro 100 Units/ML 3ML Syringe SC SCH ×3 (07:30→16:30)
[2024-11-26 07:31] VITALS: BP 140/94
[2024-11-26] MEDS ORDERED: Aspirin 81 MG Chew PO SCH (09:00)
[2024-11-26] MEDS ORDERED: Tamsulosin HCl 0.4 MG Cap PO SCH ×2 (09:00→09:31)
[2024-11-26] MEDS ORDERED: Irbesartan 150 MG Tab PO SCH (09:00)
[2024-11-26] MEDS ORDERED: buPROPion HCL 150 MG TAB.SR.12H PO SCH (09:00)
[2024-11-26 10:19] LABS: BASOPHILS ABSOLUTE AUTO 0.01 K/mm3 (0.00-0.23); BASOPHILS PERCENT AUTO 0 % (0-2); EOSINOPHILS PERCENT AUTO 0 % (0-6); Hematocrit 38.8 % (37.0-53.0); Hemoglobin 13.1 g/dL (13.5-17.5); IMMATURE GRAN ABSOLUTE AUTO 0.07 K/mm3 (0.00-0.10); IMMATURE GRAN PERCENT AUTO 1 % (0-1); LYMPHOCYTES ABSOLUTE AUTO 0.85 K/mm3 (0.84-5.20); LYMPHOCYTES PERCENT AUTO 11 % (21-46); MONOCYTES ABSOLUTE AUTO 0.25 K/mm3 (0.16-1.47); MONOCYTES PERCENT AUTO 3 % (4-13); Mean Corpuscular HGB 30.6 pg (26.0-34.0); Mean Corpuscular HGB Conc 33.8 g/dL (31.5-36.5); Mean Corpuscular Volume 91 fL (80-100); Mean Platelet Volume 9.3 fL (9.1-12.4); NEUTROPHILS ABSOLUTE AUTO 6.56 K/mm3 (1.96-9.15); NEUTROPHILS PERCENT AUTO 85 % (41-73); Platelet Count 356 K/mm3 (150-400); RDW Standard Deviation 42.8 fL (35.1-46.3); Red Blood Cell Count 4.28 M/mm3 (4.30-5.90); White Blood Cell Count 7.74 K/mm3 (4.00-11.30)
[2024-11-26 10:20] LABS: Base Excess Venous 1.3 mmol/L; Bicarbonate Venous 25.4 mmol/L (24.0-30.0); PCO2 Venous 39.2 mmHg (38-42); pH Blood Venous 7.43 (7.34-7.37)
[2024-11-26 10:41] LABS: Albumin, Blood 2.5 g/dL (3.4-5.0); Albumin/Globulin Ratio 0.5 (0.8-1.8); Bilirubin, Total 0.3 mg/dL (0.1-1.0); Bun/Creatinine Ratio 27.6 (12.0-20.0); Creatinine, Blood 0.65 mg/dL (0.60-1.20); Globulin, Blood 4.6 g/dL (2.2-4.0); Potassium, Blood 4.2 mmol/L (3.5-5.5); Total Protein, Blood 7.1 g/dL (6.4-8.2)
[2024-11-26] MEDS ORDERED: Insulin NPH 100 Unit / ML 10ML Vial SC ONE (10:50)
[2024-11-26] MEDS ORDERED: Insulin Human Lispro 100 Units/ML 3ML Syringe SC ONE (12:50)
[2024-11-26 13:09] LABS: Glucose, Blood 588 mg/dL (70-99)
[2024-11-26] MEDS ORDERED: NS 250 ML IV PRN (16:10)
[2024-11-26 16:15] VITALS: BP 149/82
[2024-11-26] MEDS ORDERED: CefTRIAXone Sodium 1,000 MG in NS 100 ML IV SCH (17:00)
[2024-11-26] MEDS ORDERED: Azithromycin 500 MG in NS 250 ML IV SCH (18:00)
[2024-11-26] MEDS ORDERED: Citalopram Hydrobromide 20 MG Tab PO SCH (21:00)
[2024-11-26] MEDS ORDERED: Metoprolol Succinate 50 MG TABCR PO SCH (21:00)
[2024-11-26] MEDS ORDERED: Insulin Glargine-Yfgn 100 Unit/mL 3 ML SYR SC SCH ×3 (21:00)
[2024-11-26] MEDS ORDERED: QUEtiapine Fumarate 100 MG Tab PO SCH (21:00)
[2024-11-26 21:02] VITALS: BP 141/87
[2024-11-27 04:29] VITALS: BP 116/67
--- NOTE | 2024-11-27 04:35 | NUR ---
AAOX3, IRRITABLE AND SHORT WITH STAFF, CAREGIVER, JANEY, IS IN ROOM AND REMINDS HIM TO BE "CALM". AMBULATES WITH CANE @ BASELINE. TELE IN PLACE. 4L O2 VIA NC, NO OXYGEN @ BASELINE. PRODUCTIVE COUGH AND DYSPNEA WITH ANY MOVEMENT. ACHS BG CHECKS. RECEIVING ROCEPHIN AND ZITHRO FOR LLL PNU.
[2024-11-27 05:19] LABS: BASOPHILS ABSOLUTE AUTO 0.01 K/mm3 (0.00-0.23); BASOPHILS PERCENT AUTO 0 % (0-2); EOSINOPHILS PERCENT AUTO 0 % (0-6); Hematocrit 34.9 % (37.0-53.0); Hemoglobin 11.8 g/dL (13.5-17.5); IMMATURE GRAN PERCENT AUTO 1 % (0-1); LYMPHOCYTES ABSOLUTE AUTO 1.45 K/mm3 (0.84-5.20); LYMPHOCYTES PERCENT AUTO 13 % (21-46); MONOCYTES ABSOLUTE AUTO 0.42 K/mm3 (0.16-1.47); MONOCYTES PERCENT AUTO 4 % (4-13); Mean Corpuscular HGB 30.6 pg (26.0-34.0); Mean Corpuscular HGB Conc 33.8 g/dL (31.5-36.5); Mean Corpuscular Volume 91 fL (80-100); Mean Platelet Volume 9.4 fL (9.1-12.4); NEUTROPHILS ABSOLUTE AUTO 9.26 K/mm3 (1.96-9.15); NEUTROPHILS PERCENT AUTO 82 % (41-73); Platelet Count 411 K/mm3 (150-400); RDW Coefficient Variation 12.9 % (11.7-14.2); RDW Standard Deviation 42.6 fL (35.1-46.3); Red Blood Cell Count 3.85 M/mm3 (4.30-5.90); White Blood Cell Count 11.24 K/mm3 (4.00-11.30)
[2024-11-27 05:46] LABS: Albumin, Blood 2.4 g/dL (3.4-5.0); Albumin/Globulin Ratio 0.6 (0.8-1.8); Bilirubin, Total 0.2 mg/dL (0.1-1.0); Bun/Creatinine Ratio 34.6 (12.0-20.0); Calcium, Blood 9.2 mg/dL (8.5-10.1); Creatinine, Blood 0.64 mg/dL (0.60-1.20); Globulin, Blood 3.9 g/dL (2.2-4.0); Potassium, Blood 5.2 mmol/L (3.5-5.5); Total Protein, Blood 6.3 g/dL (6.4-8.2)
[2024-11-27 07:35] VITALS: BP 140/98
[2024-11-27 15:20] VITALS: BP 136/75
[2024-11-27] MEDS ORDERED: MethylPREDNISolone Sod Succ 40 MG VIAL IV SCH (17:20)
[2024-11-27 19:32] VITALS: BP 147/76
[2024-11-27] MEDS ORDERED: Insulin Glargine-Yfgn 100 Unit/mL 3 ML SYR SC SCH (21:00)
[2024-11-28 04:29] VITALS: BP 143/79
[2024-11-28 05:27] LABS: BASOPHILS ABSOLUTE AUTO 0.02 K/mm3 (0.00-0.23); BASOPHILS PERCENT AUTO 0 % (0-2); EOSINOPHILS PERCENT AUTO 0 % (0-6); Hematocrit 37.4 % (37.0-53.0); Hemoglobin 12.2 g/dL (13.5-17.5); IMMATURE GRAN ABSOLUTE AUTO 0.09 K/mm3 (0.00-0.10); IMMATURE GRAN PERCENT AUTO 1 % (0-1); LYMPHOCYTES ABSOLUTE AUTO 2.09 K/mm3 (0.84-5.20); LYMPHOCYTES PERCENT AUTO 20 % (21-46); MONOCYTES ABSOLUTE AUTO 0.63 K/mm3 (0.16-1.47); MONOCYTES PERCENT AUTO 6 % (4-13); Mean Corpuscular HGB Conc 32.6 g/dL (31.5-36.5); Mean Corpuscular Volume 92 fL (80-100); Mean Platelet Volume 9.3 fL (9.1-12.4); NEUTROPHILS ABSOLUTE AUTO 7.61 K/mm3 (1.96-9.15); NEUTROPHILS PERCENT AUTO 73 % (41-73); Platelet Count 450 K/mm3 (150-400); RDW Coefficient Variation 13.2 % (11.7-14.2); RDW Standard Deviation 45.1 fL (35.1-46.3); Red Blood Cell Count 4.06 M/mm3 (4.30-5.90); White Blood Cell Count 10.44 K/mm3 (4.00-11.30)
--- NOTE | 2024-11-28 05:53 | NUR ---
AAOX4, PLEASANT AND COOPERATIVE WITH CARES. UP TO BR WITH SBA, USES BED AND WALL FOR SUPPORT. 2L O2 VIA NC, SAT IN LOW 90'S. SLEPT WELL THROUGHT THE NIGHT WITH NO ACUTE CONCERNS.
[2024-11-28 06:01] LABS: Albumin, Blood 2.5 g/dL (3.4-5.0); Albumin/Globulin Ratio 0.6 (0.8-1.8); Bilirubin, Total 0.2 mg/dL (0.1-1.0); Bun/Creatinine Ratio 39.7 (12.0-20.0); Calcium, Blood 9.5 mg/dL (8.5-10.1); Creatinine, Blood 0.71 mg/dL (0.60-1.20); Globulin, Blood 4.2 g/dL (2.2-4.0); Potassium, Blood 4.4 mmol/L (3.5-5.5); Total Protein, Blood 6.7 g/dL (6.4-8.2)
[2024-11-28 07:17] VITALS: BP 150/77
--- NOTE | 2024-11-28 12:43 | NUR ---
PT VERY AGITATED BECAUSE LUNCH IS LATE. STATED WAS GOING TO LEAVE AND WAS GETTING UP OUT OF BED. ADVISED PT LUNCH WAS RUNNING LATE, OFFERED CHEESE AND CRACKERS WHICH PT AGREED TO. NOW RESTING LENA IN BED, EATING SNACK.
[2024-11-28 15:26] VITALS: BP 151/105
--- NOTE | 2024-11-28 17:18 | NUR ---
summary NO ACUTE CHANGES T/O SHIFT. PT CAN BE QUITE IRRITABLE AT TIMES. MOOD SEEMS IMPROVED AT THIS TIME W/PRESENCE OF CAREGIVER. PT'S SATS CURRENTLY 93% ON 2L NC. SATS DROPPED TO MID TO HIGH 80S WHEN PT WAS AGITATED AND REMOVED 02. COVERED BLOOD SUGARS PER ORDERS. IV ABX INFUSING PER ORDERS. PT WORKED WITH OT AND PT THIS AFTERNOON. CALL LIGHT IN REACH.
[2024-11-28] MEDS ORDERED: Furosemide 10 MG/ML 4ML Vial IV ONE (18:00)
--- NOTE | 2024-11-28 18:39 | NUR ---
reported evening cbg, bnp and blood pressure to dr fields. orders obtained.
[2024-11-28 19:52] VITALS: BP 161/97
[2024-11-28] MEDS ORDERED: Insulin Glargine-Yfgn 100 Unit/mL 3 ML SYR SC SCH ×2 (21:00)
--- NOTE | 2024-11-28 22:48 | NUR ---
HOSPITALIST CONTACT PT HAD HS CBG OF 428; GAVE INSULIN PER DEC. RECHECKED AT 2234--NEW CBG 355. CALL TO HOSPITALIST TO ADVISE OF CBG, INSULIN GIVEN, AND SEEK ORDER FOR ADDITIONAL INSULIN. SPOKE TO ZOHREH. NO NEW ORDER AT THIS TIME.
[2024-11-29 05:31] LABS: BASOPHILS ABSOLUTE AUTO 0.03 K/mm3 (0.00-0.23); BASOPHILS PERCENT AUTO 0 % (0-2); EOSINOPHILS PERCENT AUTO 0 % (0-6); Hemoglobin 11.8 g/dL (13.5-17.5); IMMATURE GRAN ABSOLUTE AUTO 0.27 K/mm3 (0.00-0.10); IMMATURE GRAN PERCENT AUTO 3 % (0-1); LYMPHOCYTES ABSOLUTE AUTO 1.65 K/mm3 (0.84-5.20); LYMPHOCYTES PERCENT AUTO 18 % (21-46); MONOCYTES ABSOLUTE AUTO 0.41 K/mm3 (0.16-1.47); MONOCYTES PERCENT AUTO 4 % (4-13); Mean Corpuscular HGB 30.1 pg (26.0-34.0); Mean Corpuscular HGB Conc 32.8 g/dL (31.5-36.5); Mean Corpuscular Volume 92 fL (80-100); Mean Platelet Volume 9.4 fL (9.1-12.4); NEUTROPHILS ABSOLUTE AUTO 6.89 K/mm3 (1.96-9.15); NEUTROPHILS PERCENT AUTO 75 % (41-73); Platelet Count 431 K/mm3 (150-400); RDW Coefficient Variation 13.3 % (11.7-14.2); RDW Standard Deviation 44.8 fL (35.1-46.3); Red Blood Cell Count 3.92 M/mm3 (4.30-5.90); White Blood Cell Count 9.25 K/mm3 (4.00-11.30)
[2024-11-29 06:00] LABS: Bun/Creatinine Ratio 38.9 (12.0-20.0); Calcium, Blood 9.1 mg/dL (8.5-10.1); Creatinine, Blood 1.08 mg/dL (0.60-1.20); Potassium, Blood 4.4 mmol/L (3.5-5.5)
--- NOTE | 2024-11-29 06:11 | NUR ---
MOTOR WINDER SUMMARY PT A/OX4. PT ABLE TO MAKE NEEDS KNONW. PT HAS 4X LOOSE STOOLS T/O THE NIGHT. PT ON 2LPM O2. CONT BIOX. PT IRRITABLE AND AGITATES EASILY. RIGHT FOREARM IV INFUSING; THE LINE WOULD FREQUENTLY OCCLUDE DUE TO BENDING THE ARM. ATTEMPT TO EDUCATE PT ON NOT MOVING ARM AND HOLDING STRAIGHT--PT WOULD BECOME AGITATED AND RAISE HIS VOICE. PT THREATENING TO THROW IV POLE WHEN ALARMS AND/OR STOP ABOX. PT ALLOWED PLACEMENT OF NEW IV TO LEFT/NON DOM HAND. PT WAS AGREEABLE AND APPRECIATED THE NEW IV. CALL LIGHT ACCESSBILE. CARE WILL CONTINUE UNTIL REPORT GIVEN TO ONCOMING NURSE.
[2024-11-29 07:22] VITALS: BP 163/77
[2024-11-29 07:54] VITALS: BP 163/70
[2024-11-29] MEDS ORDERED: Furosemide 10 MG/ML 4ML Vial IV SCH (09:00)
--- NOTE | 2024-11-29 15:02 | NUR ---
PATIENT LEFT AMA, PATEINT UNCONSOLABLE, YELLING AND THROWING THINGS AT STAFF IN THE ROOM, "I AM LEAVING THIS FUCKING HOSPITAL, IM PAYING FOR EVERYTHING, I CAN HAVE WHAT I WANT". PATIENT UPSET HOSPITAL IS STARVING HIM BECAUSE WE DO NOT CARRY CHIPS, STRAWBERRY MILK, AND HEALTH CARE INTERVENTION FOR BLOOD SUGAR CONTROL. DESIGN AGENT JANEY CAME AND LEFT WITH PATIENT, SECURITY CONTACTED AND WQALKED PATIENT OUT, DR DOWLING NOTIFIED. AMA PAPERWORK SIGNED WITH WITNESS, SCALES INSPECTOR AWARE
[2024-11-29] MEDS ORDERED: Insulin Glargine-Yfgn 100 Unit/mL 3 ML SYR SC SCH (21:00)
[2024-11-30] MEDS ORDERED: PredniSONE 20 MG Tab PO SCH (09:00)
== END 2024-11-29 15:07 | disposition left against medical advice (07) | DRG 871 ==
LOC: ER 12:27 → MEDS 17:39
PROVIDERS: Family Medicine; Student in an Organized Health Care Education/Training Program; ADMIT Internal Medicine
DX: A41.9 Sepsis, unspecified organism (principal); J18.9 Pneumonia, unspecified organism; J96.01 Acute respiratory failure with hypoxia; J44.0 Chronic obstructive pulmonary disease with (acute) lower respiratory infection; J44.1 Chronic obstructive pulmonary disease with (acute) exacerbation; F17.210 Nicotine dependence, cigarettes, uncomplicated; E11.65 Type 2 diabetes mellitus with hyperglycemia; F43.10 Post-traumatic stress disorder, unspecified; R65.20 Severe sepsis without septic shock; E87.79 Other fluid overload; Z86.73 Personal history of transient ischemic attack (TIA), and cerebral infarction without residual deficits; I25.2 Old myocardial infarction; Z88.0 Allergy status to penicillin; Z88.8 Allergy status to other drugs, medicaments and biological substances; Z79.84 Long term (current) use of oral hypoglycemic drugs; Z79.82 Long term (current) use of aspirin; Z95.5 Presence of coronary angioplasty implant and graft
CPT/HCPCS: 0241U; 36415; 71046; 80048; 80053; 82803; 82947; 83605; 83880; 84145; 85025; 87040; 87070; 87205; 94640; 94664; 94760; 94762; 96374; 97110; 97116; 97162; 97165; 99285-25; A9270; J0456; J0696; J1650; J1815; J1940; J2919; J7030; J7050

== ENCOUNTER 2025-09-30 22:53 | Emergency (ER) | payer MEDICARE, OTHER ==
[~2025-09-30] VITALS: Ht 182.9 cm; Wt 77.1 kg
[~2025-09-30 22:53] MED LIST changes: +ALBU90OI INH; +BASAGLAR K100 UNIT/8 SC; +ESCI10 PO; +FLUT1DIS2 INH; +Flomax0.4 MG PO; +GLUCOPHAGE1000 M1 PO; +METO50ER PO
[2025-09-30] MEDS ORDERED: NS 1,000 ML IV SCH (23:20)
[2025-09-30 23:22] LABS: BASOPHILS ABSOLUTE AUTO 0.09 K/mm3 (0.00-0.23); BASOPHILS PERCENT AUTO 1 % (0-2); EOSINOPHILS ABSOLUTE AUTO 0.17 K/mm3 (0.00-0.68); EOSINOPHILS PERCENT AUTO 2 % (0-6); Hematocrit 44.8 % (37.0-53.0); Hemoglobin 14.6 g/dL (13.5-17.5); IMMATURE GRAN ABSOLUTE AUTO 0.02 K/mm3 (0.00-0.10); IMMATURE GRAN PERCENT AUTO 0 % (0-1); LYMPHOCYTES ABSOLUTE AUTO 3.95 K/mm3 (0.84-5.20); LYMPHOCYTES PERCENT AUTO 44 % (21-46); MONOCYTES ABSOLUTE AUTO 0.72 K/mm3 (0.16-1.47); MONOCYTES PERCENT AUTO 8 % (4-13); Mean Corpuscular HGB Conc 32.6 g/dL (31.5-36.5); Mean Corpuscular Volume 96 fL (80-100); NEUTROPHILS ABSOLUTE AUTO 4.01 K/mm3 (1.96-9.15); NEUTROPHILS PERCENT AUTO 45 % (41-73); NRBC ABSOLUTE 0.00 K/mm3 (0.00-0.02); NRBC Auto 0.0 /100 WBC (0.0-0.2); Platelet Count 176 K/mm3 (150-400); RDW Coefficient Variation 12.7 % (11.7-14.2); RDW Standard Deviation 44.9 fL (35.1-46.3)
[2025-09-30 23:56] LABS: Alanine Aminotransfer (ALT/SGP 31 U/L (12-78); Albumin, Blood 4.0 g/dL (3.4-5.0); Albumin/Globulin Ratio 1.3 (0.8-1.8); Anion Gap 19 mmol/L (3-11); Aspartate Aminotrans (AST/SGOT 12 U/L (12-37); Bilirubin, Total 0.2 mg/dL (0.1-1.0); Blood Urea Nitrogen 21 mg/dL (8-24); CO2, Blood 19 mmol/L (21-32); Calcium, Blood 9.1 mg/dL (8.5-10.1); Chloride, Blood 102 mmol/L (98-108); Creatinine, Blood 0.82 mg/dL (0.60-1.20); Ethanol (Alcohol), Blood, Med 176 mg/dL; Globulin, Blood 3.0 g/dL (2.2-4.0); Glucose, Blood 222 mg/dL (70-99); Potassium, Blood 3.6 mmol/L (3.5-5.5); Sodium, Blood 136 mmol/L (136-145); Total Protein, Blood 7.0 g/dL (6.4-8.2)
[2025-10-01 00:22] VITALS: BP 90/57
== END 2025-10-01 03:14 | disposition home or self-care (01) ==
LOC: ER 22:53
PROVIDERS: Emergency Medicine
DX: F10.129 Alcohol abuse with intoxication, unspecified (principal); E11.9 Type 2 diabetes mellitus without complications; I25.2 Old myocardial infarction; F17.200 Nicotine dependence, unspecified, uncomplicated; Z95.5 Presence of coronary angioplasty implant and graft; Z88.0 Allergy status to penicillin; Z88.8 Allergy status to other drugs, medicaments and biological substances; Z79.84 Long term (current) use of oral hypoglycemic drugs; Z79.4 Long term (current) use of insulin; Z79.899 Other long term (current) drug therapy
CPT/HCPCS: 80053; 80320; 83880; 85025; 93005; 93010; 96360; 99285-25; J7030

== ENCOUNTER 2025-10-02 18:24 | Emergency (ER) | payer MEDICARE, OTHER ==
[~2025-10-02] VITALS: Ht 185.4 cm; Wt 97.5 kg
[2025-10-02 19:40] LABS: BASOPHILS ABSOLUTE AUTO 0.07 K/mm3 (0.00-0.23); BASOPHILS PERCENT AUTO 1 % (0-2); EOSINOPHILS ABSOLUTE AUTO 0.16 K/mm3 (0.00-0.68); EOSINOPHILS PERCENT AUTO 2 % (0-6); Hematocrit 45.9 % (37.0-53.0); Hemoglobin 15.1 g/dL (13.5-17.5); IMMATURE GRAN ABSOLUTE AUTO 0.03 K/mm3 (0.00-0.10); IMMATURE GRAN PERCENT AUTO 0 % (0-1); LYMPHOCYTES ABSOLUTE AUTO 3.93 K/mm3 (0.84-5.20); LYMPHOCYTES PERCENT AUTO 40 % (21-46); MONOCYTES ABSOLUTE AUTO 0.74 K/mm3 (0.16-1.47); MONOCYTES PERCENT AUTO 8 % (4-13); Mean Corpuscular HGB Conc 32.9 g/dL (31.5-36.5); Mean Corpuscular Volume 95 fL (80-100); NEUTROPHILS ABSOLUTE AUTO 4.80 K/mm3 (1.96-9.15); NEUTROPHILS PERCENT AUTO 49 % (41-73); NRBC ABSOLUTE 0.00 K/mm3 (0.00-0.02); NRBC Auto 0.0 /100 WBC (0.0-0.2); Platelet Count 184 K/mm3 (150-400); RDW Coefficient Variation 13.1 % (11.7-14.2); RDW Standard Deviation 46.1 fL (35.1-46.3)
[2025-10-02 19:56] LABS: Alanine Aminotransfer (ALT/SGP 30.0 U/L (12-78); Albumin, Blood 4.3 g/dL (3.4-5.0); Albumin/Globulin Ratio 1.2 (0.8-1.8); Anion Gap 17.0 mmol/L (3-11); Aspartate Aminotrans (AST/SGOT 18.0 U/L (12-37); Bilirubin, Total 0.3 mg/dL (0.1-1.0); Blood Urea Nitrogen 20.0 mg/dL (8-24); CO2, Blood 20.0 mmol/L (21-32); Calcium, Blood 9.5 mg/dL (8.5-10.1); Chloride, Blood 104.0 mmol/L (98-108); Creatinine, Blood 1.0 mg/dL (0.60-1.20); Ethanol (Alcohol), Blood, Med 196.0 mg/dL; Globulin, Blood 3.6 g/dL (2.2-4.0); Glucose, Blood 191.0 mg/dL (70-99); Potassium, Blood 3.8 mmol/L (3.5-5.5); Sodium, Blood 137.0 mmol/L (136-145); Total Protein, Blood 7.9 g/dL (6.4-8.2)
[2025-10-02] MEDS ORDERED: Ondansetron HCl 2 MG / ML 2ML Vial IV ONE (21:05)
[2025-10-02 22:06] VITALS: BP 139/90
== END 2025-10-02 22:15 | disposition home or self-care (01) ==
LOC: ER 18:24
PROVIDERS: Emergency Medicine
DX: S70.02XA Contusion of left hip, initial encounter (principal); F10.129 Alcohol abuse with intoxication, unspecified; Y90.6 Blood alcohol level of 120-199 mg/100 ml; W18.30XA Fall on same level, unspecified, initial encounter; Y92.009 Unspecified place in unspecified non-institutional (private) residence as the place of occurrence of the external cause; Z79.82 Long term (current) use of aspirin; Z79.899 Other long term (current) drug therapy; Z79.4 Long term (current) use of insulin; Z88.8 Allergy status to other drugs, medicaments and biological substances; Z88.0 Allergy status to penicillin; E11.9 Type 2 diabetes mellitus without complications; F17.200 Nicotine dependence, unspecified, uncomplicated
CPT/HCPCS: 70450; 72125; 73502; 80053; 80320; 82550; 82947; 85025; 93005; 93010; 96374; 99285-25